=== PATIENT | female | born 1965 | race Caucasian/White ===

== ENCOUNTER 2020-01-22 17:48 | Emergency (ER) | payer SELFPAY ==
[2020-01-22 18:03] VITALS: BP 126/77; PULSE 92; RESP 17; TEMP 36.7; O2SAT 92; BMI 27.1
--- NOTE | 2020-01-22 18:15 | W.ED.GENADLT ---
HPI - General Adult General: Chief complaint: General Medical Stated complaint: sore throat, ear pain Time Seen by Provider: 01/22/20 18:04 Source: patient Mode of arrival: ambulatory Limitations: no limitations History of Present Illness: HPI narrative: Patient is a 54-year-old female who presents to ED today with a main complaint of right ear pain over the past 4 days. She has not had any injury or trauma to her ear. She denies any recent water activities. She denies drainage, tinnitus, or hearing loss. She also states she is having pain in her throat only with swallowing . She states she was able to eat ice cream and oatmeal today and is not having difficulty with secretions. No fevers. Associated symptoms: Deny chest pain, dyspnea, headache(s), malaise, nausea, rash, palpitations, syncope or vomiting Review of Systems General: Reports: 10 or more systems reviewed and unremarkable except in HPI and below Const: Denies: fever, chills, body aches, fatigue, malaise or night sweats Eyes: Denies: change in vision, blurry vision, photophobia, eye discomfort, eye discharge, floaters or seeing flashes ENMT: Reports: throat pain, painful swallowing and ear pain; Denies: enlarged tonsils, swelling of lips/tongue, oral sores/lesions, ear discharge, Change in hearing, tinnitus, nasal discharge, nasal congestion, nose bleeds, post nasal drip or facial/sinus pain Card: Denies: chest pain, palpitations, irregular heart rhythm, edema, lightheadedness, syncope or pre-syncope Resp: Denies: shortness of breath, productive cough or non-productive cough GI: Denies: abdominal pain, nausea, vomiting or diarrhea Musc: Denies: neck pain or back pain Skin/Breast: Denies: rash Neuro: Denies: headache, numbness in extremities, weakness in extremities, changes in sensation, dizziness or vertigo All/Imm: Denies: facial swelling or seasonal allergies PFSH ED PFSH: Social History Smoking and tobacco status: current every day smoker Physical Exam Const: COMMON NORMALS: no apparent distress, average body habitus, oriented x3, no limitations, healthy appearing, alert and well nourished HENMT: COMMON NORMALS: normocephalic, head/scalp atraumatic, hearing grossly normal bilaterally, external ears normal, external nose normal, nasal mucous membranes and turbinates normal and moist oral mucous membranes HEAD & SCALP: normal to inspection, normocephalic and atraumatic FACE & SINUS: normal facial exam and sinuses nontender NOSE: external nose normal and nasal mucous membranes and turbinates normal EXTERNAL EAR: Yes external ears normal EXTERNAL AUDITORY CANAL: EAC abnormal (fluid and bulging to R TM; no perf; no erythema ) TYMPANIC MEMBRANE: TM normal on the left MOUTH: lip normal and tongue normal THROAT: peritonsillar mass right, posterior oropharynx abnormal exudates and uvula laterally displaced to the left OTHER: no muffled voice Eye: COMMON NORMALS: PERRL, EOMs intact bilaterally and conjunctivae normal CONJUNCTIVA: Yes conjunctivae normal PUPIL: Yes PERRL Resp: COMMON NORMALS: normal respiratory effort and clear to auscultation bilaterally AUSCULTATION: clear to auscultation bilaterally Cardio: COMMON NORMALS: regular rate and regular rhythm RATE: regular rate RHYTHM: regular rhythm Neuro: COMMON NORMALS: oriented x3 SENSORIUM/ORIENTATION: Yes alert Skin: COMMON NORMALS: no rashes or lesions noted GENERAL SKIN EXAM: no rashes or lesions noted Course Consultations: Consultation #1: MONICA Cantrell at [facility]-will see patient for drainage at 9AM tomorrow Vital Signs: Vital signs: Vital Signs Temperature 98.1 F 01/22/20 18:03 Pulse Rate 84 01/22/20 19:23 Respiratory Rate 16 01/22/20 19:23 Blood Pressure 126/77 01/22/20 19:23 Pulse Oximetry 96 01/22/20 19:23 MDM - General Adult MDM Narrative: Medical decision making narrative: 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 Her CT scan confirms the presence of a 3.6 cm abscess. On patient's lab work she is noted to have a blood sugar of over 500. Patient states she is not a known diabetic. She was given fluids and insulin here and repeat glucose was 367. She will be placed on metformin and we will have case management get her a PCP appointment as soon as possible. I spoke to [facility] who will see her tomorrow morning for drainage. At this time patient has no muffled voice, she is able to control her own secretions, she is able to eat/drink. Patient was given IV Decadron here prior to glucose lab returning. I will place her on any prescription steroids at this time and leave that decision up to ENT. Strict return to ED precautions given for overnight. Lab Data: Labs: Lab Results 01/22/20 01/22/20 01/22/20 Range/Units 18:20 18:35 19:21 WBC 17.5 H (4.0-10.0) 10^3/ uL RBC 4.56 (4.1-5.3) 10^6/u L Hgb 13.7 (11.5-15.3) g/dL Hct 41.2 (37.0-47.0) % MCV 90.4 (81-99) fL MCH 30.0 (28.0-34.0) pg MCHC 33.3 (30.0-36.0) g/dL RDW 12.0 L (12.1-15.1) % Plt Count 262 (130-400) 10^3/c mm MPV 11.9 H (7.4-10.4) fL Neut % (Auto) 76.9 % Lymph % (Auto) 16.0 % [place] % (Auto) 5.4 % Eos % (Auto) 0.7 % Baso % (Auto) 0.5 % Neut # (Auto) 13.4 H (1.8-7.7) 10^3/u L Lymph # (Auto) 2.8 (0.8-4.8) 10^3/u L [place] # (Auto) 1.0 H (0.2-0.9) 10^3/u L Eos # (Auto) 0.1 (0.0-0.8) 10^3/u L Baso # (Auto) 0.1 (0.0-0.1) 10^3/u L Nucleated RBC % (a uto) 0 % Nucleated RBCs # 0.0 /100WBC Sodium 132 L (136-145) mmol/L Potassium 3.4 L (3.5-5.1) mmol/L Chloride 87 L (98-107) mmol/L Carbon Dioxide 30 H (22-29) mmol/L Anion Gap 18.4 (5-19) BUN 6 (6-20) mg/dL Creatinine 0.8 (0.5-0.9) mg/dL GFR Calculation 74.7 L (90-130) mL/min Glucose 513 H* (65-115) mg/dL Calculated Osmolal ity 293 (285-295) mOsm/k g Calcium 10.3 (8.5-10.5) mg/dL Total Bilirubin 0.5 (0.15-1.2) mg/dL AST 14 (0-32) U/L ALT 11 (0-33) U/L Alkaline Phosphata se 175 H (35-105) IU/L Total Protein 9.1 H (6.6-8.7) g/dL Albumin 4.0 (3.5-5.2) g/dL Globulin 5.1 H (1.3-4.6) g/dL Urine Opiates Scre en (Negative) ng/mL Ur Barbiturates Sc reen (Negative) ng/mL Ur Phencyclidine S crn (Negative) ng/mL Ur Amphetamines Sc reen (Negative) ng/mL U Benzodiazepines Scrn (Negative) ng/mL Urine Cocaine Scre en (Negative) ng/mL U Marijuana (THC) Screen (Negative) ng/mL Group A Strep Rapi d Negative (Negative) 01/22/20 Range/Units 19:30 WBC (4.0-10.0) 10^3/ uL RBC (4.1-5.3) 10^6/u L Hgb (11.5-15.3) g/dL Hct (37.0-47.0) % MCV (81-99) fL MCH (28.0-34.0) pg MCHC (30.0-36.0) g/dL RDW (12.1-15.1) % Plt Count (130-400) 10^3/c mm MPV (7.4-10.4) fL Neut % (Auto) % Lymph % (Auto) % [place] % (Auto) % Eos % (Auto) % Baso % (Auto) % Neut # (Auto) (1.8-7.7) 10^3/u L Lymph # (Auto) (0.8-4.8) 10^3/u L [place] # (Auto) (0.2-0.9) 10^3/u L Eos # (Auto) (0.0-0.8) 10^3/u L Baso # (Auto) (0.0-0.1) 10^3/u L Nucleated RBC % (a uto) % Nucleated RBCs # /100WBC Sodium (136-145) mmol/L Potassium (3.5-5.1) mmol/L Chloride (98-107) mmol/L Carbon Dioxide (22-29) mmol/L Anion Gap (5-19) BUN (6-20) mg/dL Creatinine (0.5-0.9) mg/dL GFR Calculation (90-130) mL/min Glucose (65-115) mg/dL Calculated Osmolal ity (285-295) mOsm/k g Calcium (8.5-10.5) mg/dL Total Bilirubin (0.15-1.2) mg/dL AST (0-32) U/L ALT (0-33) U/L Alkaline Phosphata se (35-105) IU/L Total Protein (6.6-8.7) g/dL Albumin (3.5-5.2) g/dL Globulin (1.3-4.6) g/dL Urine Opiates Scre en Negative (Negative) ng/mL Ur Barbiturates Sc reen Negative (Negative) ng/mL Ur Phencyclidine S crn Negative (Negative) ng/mL Ur Amphetamines Sc reen Positive H (Negative) ng/mL U Benzodiazepines Scrn Negative (Negative) ng/mL Urine Cocaine Scre en Negative (Negative) ng/mL U Marijuana (THC) Screen Positive H (Negative) ng/mL Group A Strep Rapi d (Negative) Imaging Data^: CT neck: Radiologist's impression: [place] [address] CT Scan Report Signed Patient: Aida Luong Unit #: [id number] : 1965 Age/Sex: 54 / F ADM Date: 01/22/20 Loc: ER Room/Bed: Attending Dr: Ordering Provider/Ordering MD: Abbey Carey Date of Service: 01/22/20 Procedure(s): CT neck w con* [id number] Accession Number(s): [id number] Report Number: [id number] PROCEDURE INFORMATION: Exam: CT Neck With Contrast Exam date and time: 01/22/2020 6:37 PM Age: 54 years old Clinical indication: Neck pain and other: Ear; Additional info: R sided area captain; Uvular displacement; R ear/mastoid pain TECHNIQUE: Imaging protocol: Computed tomography images of the neck with intravenous contrast. Radiation optimization: All CT scans at this facility use at least one of these dose optimization techniques: automated exposure control; mA and/or kV adjustment per patient size (includes targeted exams where dose is matched to clinical indication); or iterative reconstruction. Contrast material: OMNI 300; Contrast volume: 95 ml; Contrast route: IV; COMPARISON: No relevant prior studies available. RADIATION DOSE METRICS: Total DLP: 642.18 mGy-cm FINDINGS: Nasopharynx: Unremarkable. Oropharynx: 3.6 x 3 x 2.8 cm ovoid shaped hypodense mass with peripheral enhancement right oropharyngeal region worrisome for an abscess (or less likely necrotic tumor); series 3, axial image 35 through 47. Hypopharynx: See larynx below. Larynx: Associated mild edema/inflammation of uvula which is displaced to the left. Mild swelling/edema right supraglottic larynx region. Grossly nonenlarged epiglottis. Retropharyngeal space: Unremarkable. Submandibular/Parotid glands: Normal. Glands are normal in size. Thyroid: Normal. No enlarged or calcified nodules. Lymph nodes: Bilateral homogeneously enhancing lymph nodes submandibular and jugulodigastric regions the. These are presumably reactive in nature. The largest right jugulodigastric node measures 2.6 x 1.5 cm. Trachea: Visualized trachea is unremarkable. Lungs: Unremarkable as visualized. Dental: Bilateral dental caries and periodontal disease. Bones/joints: Unremarkable. No acute fracture. CT/CT neck w con* [id number] IMPRESSION: 1.) 3.6 cm right pharyngeal region mass with peripheral enhancement worrisome for an abscess. Necrotic tumor not absolutely excluded. 2.) Bilateral presumably reactive lymphadenopathy. 3.) Chronic dental disease. Radiation Dose CTDIVOL = (mGy): DLP = 642.18 (mGy-cm) Dictated By: Keith Alvarez MD Signed By: Keith Alvarez MD Signed Date/Time: 01/22/201934 DD/ 34 Discharge Plan Discharge Patient Disposition: Home, Self-Care Clinical Impression: Abscess, peritonsillar Uncontrolled diabetes mellitus Qualifiers: Diabetes mellitus type: type 2 Glycemic state: with hyperglycemia Qualified Code(s): E11.65 - Type 2 diabetes mellitus with hyperglycemia Condition: Stable Prescriptions: New clindamycin HCl 300 mg capsule 300 mg PO Q6H 10 Days Qty: 40 RF: 0 metformin 500 mg tablet 500 mg PO BID Qty: 60 RF: 0 Discharge Orders: Discharge Order (Routine); Ordered 01/22/20 Ordered By: Abbey Carey Referrals: Len Mann MD [Family Provider] - Discharge Diet: Soft Mechanical Discharge Activity: Increase activity as tolerated Patient Instructions: Peritonsillar Abscess (ED), Peritonsillar Abscess - Adult Activity Restrictions/Additional Instructions: As discussed [facility] is going to see you at 9 AM TOMORROW. It is imperative that you make this appointment. Address for their office is [address] [place] [address] [address] floor) [place], [place]. Their phone number is [phone]. I have given you a prescription for antibiotics-they may change this if needed. In addition please discuss with them the use of steroids as we found out today you are an undiagnosed diabetic with uncontrolled sugars. BRING THE DISC OF YOUR CT SCAN WITH YOU TO THE APPOINTMENT. 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
[2020-01-22 18:42] LABS: Basophils # 0.1 10^3/uL (0.0-0.1); Basophils % 0.5 %; Eosinophils # 0.1 10^3/uL (0.0-0.8); Eosinophils % 0.7 %; Hematocrit 41.2 % (37.0-47.0); Hemoglobin 13.7 g/dL (11.5-15.3); Lymphocytes # 2.8 10^3/uL (0.8-4.8); Mean Corpuscular HGB Conc 33.3 g/dL (30.0-36.0); Mean Corpuscular Volume 90.4 fL (81-99); Mean Platelet Volume 11.9 fL (7.4-10.4); Monocytes % 5.4 %; Neutrophils # 13.4 10^3/uL (1.8-7.7); Neutrophils % 76.9 %; Nucleated Red Blood Cells % 0 %; Platelet Count 262 10^3/cmm (130-400); Red Blood Count 4.56 10^6/uL (4.1-5.3); White Blood Count 17.5 10^3/uL (4.0-10.0)
[2020-01-22] MEDS: clindamycin 900 MG/50 ML PREMIX 100 MG IV (18:49)
[2020-01-22] MEDS: dexamethasone 10 mg/mL INJ 8 MG IV (18:49)
[2020-01-22] MEDS: iohexol 300 mg/mL 100 mL Btl IV (18:51)
[2020-01-22 19:08] LABS: Alanine Aminotransferase 11 U/L (0-33); Alkaline Phosphatase 175 IU/L (35-105); Anion Gap 18.4 (5-19); Aspartate Amino Transferase 14 U/L (0-32); Blood Urea Nitrogen 6 mg/dL (6-20); Calcium 10.3 mg/dL (8.5-10.5); Carbon Dioxide 30 mmol/L (22-29); Chloride 87 mmol/L (98-107); Globulin 5.1 g/dL (1.3-4.6); Glomerular Filtration Rate 74.7 mL/min (90-130); Osmolality Calculated 293 mOsm/kg (285-295); Potassium 3.4 mmol/L (3.5-5.1); Sodium 132 mmol/L (136-145); Total Bilirubin 0.5 mg/dL (0.15-1.2); Total Protein 9.1 g/dL (6.6-8.7)
--- NOTE | 2020-01-22 19:08 | PC.NURSE ---
report received from ARIS Almonte and care transferred to ARIS Blas
[2020-01-22 19:23] VITALS: BP 126/77; PULSE 84; RESP 16; O2SAT 96
[2020-01-22 19:26] LABS: Glucose 513 mg/dL (65-115)
--- NOTE | 2020-01-22 19:27 | PC.NURSE ---
received critical glucose of 513 from lab, notified ANA PAULA Balderrama
[2020-01-22] MEDS: sodium chloride 0.9% 1,000 ML 999 ML IV (20:01)
[2020-01-22 20:22] LABS: Amphetamines Screen Urine Positive (Negative); Barbiturates Screen Urine Negative (Negative); Benzodiazepines Screen Urine Negative (Negative); Cocaine Screen Urine Negative (Negative); Opiate Screen Urine Negative (Negative); PCP Screen Urine Negative (Negative); THC Screen Urine Positive (Negative)
[2020-01-22 20:24] LABS: Rapid Strep A Test Negative (Negative)
[2020-01-22] MEDS: insulin regular-human 100 units/1 mL 8 UNIT IVP (20:26)
[2020-01-22 21:24] VITALS: BP 122/74; PULSE 70; RESP 16; O2SAT 98
[2020-01-23 07:53] LABS: Glucose Point of Care 376 mg/dL (70-110)
--- NOTE | 2020-01-23 13:56 | DCPLANNER ---
manager marketing communication had message to speak with patient about getting established with a primary care physician. manager marketing communication called [phone], was told that no one by that name lived there. manager marketing communication said that this was [facility], and this was the number that the field case manager had for patient. Then field case manager was told that patient was in [place] seeing an ENT. manager marketing communication left name and phone number to be given to patient to call field case manager back about getting established with a primary care physician.
== END 2020-01-22 21:27 | disposition home or self-care (01) ==
PROVIDERS: Emergency Provider Physician Assistant; Family Provider General Practice
DX: J36 Peritonsillar abscess (principal); E11.65 Type 2 diabetes mellitus with hyperglycemia; F17.210 Nicotine dependence, cigarettes, uncomplicated
CPT/HCPCS: 12345; 36416; 70491; 80053; 80306; 82962; 85025; 87081; 87880; 96365; 96375; 99283; 99284; J1100; J1815; J3490; J7030; Q9967

== ENCOUNTER 2020-02-21 10:20 | Emergency (ER) | payer SELFPAY ==
[2020-02-21 10:31] VITALS: BMI 23.6
[2020-02-21 10:35] VITALS: BP 139/91; PULSE 93; RESP 18; TEMP 36.7; O2SAT 96
--- NOTE | 2020-02-21 10:47 | W.ED.EXTPRO ---
HPI - Extremity Problem General: Chief complaint: Extremity Problem,Nontraumatic Stated complaint: LEGS CRAMPING Time Seen by Provider: 02/21/20 10:44 History of Present Illness: HPI Narrative: 54-year-old female comes in complaining of severe back pain pain radiates down into her left buttock and down into her feet. She has had this for the last week without significant improvement she does find that lying down seems to help and she can position and pain to alleviate it some but it is not completely resolved. She has been trying various [id number] NSAIDs with no real relief. She denies any urinary retention or fecal incontinence there is no dysuria urgency or frequency no fever no recent illnesses. She is not had previous episodes that she cannot recall a significant precipitating event to that seem to set off this discomfort. MD Complaint: extremity pain Onset (ago): day(s) (7) Pain Consistency: constant Location: left and lower extremity Quality: burning and sharp Radiation: distal Relieving factors: immobilization and rest Exacerbating factors: weight bearing and walking Associated symptoms: Reports no associated symptoms; Deny chest pain, fever(s) or rash Review of Systems Const: Denies: fever(s), chills, body aches, change in appetite, fatigue or malaise ENMT: Denies: throat pain, ear or mastoid pain, nasal discharge or nasal congestion Card: Denies: chest pain, edema, dyspnea on exertion or orthopnea Resp: Denies: dyspnea, productive cough or non-productive cough GI: Denies: abdominal pain, nausea, vomiting, hematemesis, coffee ground emesis, diarrhea, constipation, bloating, hematochezia or melena : Denies: flank pain, difficulty voiding, dysuria, urinary frequency or urinary urgency Skin/Breast: Denies: rash or pruritus PFSH ED PFSH: Social History Smoking and tobacco status: current every day smoker Physical Exam Const: COMMON NORMALS: no acute distress GENERAL APPEARANCE: cooperative and comfortable ORIENTATION/CONSCIOUSNESS: Yes awake, Yes oriented to person, Yes oriented to place and Yes oriented to time HENMT: COMMON NORMALS: normocephalic, atraumatic, hearing grossly normal bilaterally, external ears normal, EAC's normal, TM's normal bilaterally, Normal nasal mucous membranes and turbinates present, moist oral mucous membranes and oropharynx normal HEAD & SCALP: normocephalic and atraumatic NOSE: Normal nasal mucous membranes and turbinates present EXTERNAL EAR: Yes external ears normal EXTERNAL AUDITORY CANAL: EAC's normal TYMPANIC MEMBRANE: TM's normal bilaterally Eye: COMMON NORMALS: Equal, round and reactive pupils present, EOMs intact bilaterally, conjunctivae normal and no scleral icterus CONJUNCTIVA: Yes conjunctivae normal PUPIL: Yes Equal, round and reactive pupils present Neck/C-Spine: COMMON NORMALS: full ROM, no lymphadenopathy, supple and no JVD Lymph: LYMPHATIC: no lymphadenopathy noted and no lymphedema noted Resp: COMMON NORMALS: normal respiratory effort, No retractions, No use of accessory muscles and clear to auscultation bilaterally AUSCULTATION: clear to auscultation bilaterally Cardio: COMMON NORMALS: no JVD, regular rate, regular rhythm and No murmurs present (Cardio) RATE: regular rate RHYTHM: regular rhythm GI: COMMON NORMALS: Soft to palpation and No hepatosplenomegaly present AUSCULTATION: Yes normoactive bowel sounds PALPATION: Yes Soft to palpation, No Tenderness to palpation present (GI), No Guarding due to palpation present (GI) and Yes No hepatosplenomegaly present Extremity: COMMON NORMALS: normal to inspection, capillary refill normal, no clubbing, cyanosis or edema, no calf tenderness and no pedal edema Neuro: SENSORIUM/ORIENTATION: Yes oriented to person, Yes oriented to place and Yes oriented to time DEEP TENDON REFLEXES: Right patellar reflex intensity grade: 1+ and Left patellar reflex intensity grade: 1+ OTHER: Dorsum plantar flex strength 5 of 5 with no weakness sensation of the lower extremity normal at this time no hyperesthesias or paresthesias Skin: COMMON NORMALS: no rashes or lesions noted GENERAL SKIN EXAM: no rashes or lesions noted Course Vital Signs: Vital signs: Vital Signs Temperature 98.0 F 02/21/20 10:35 Pulse Rate 63 02/21/20 13:00 Respiratory Rate 18 02/21/20 10:35 Blood Pressure 132/80 02/21/20 13:00 Pulse Oximetry 95 02/21/20 13:00 MDM - Extremity (Nontraumatic) MDM Narrative: Medical decision making narrative: Reviewed the CT findings with her there is a abnormality in the L4 neural arch that needs further evaluation. I think she also needs further evaluation little more concerned about her radicular symptoms. We will get her set up for MRI in an outpatient setting and then get her referred to neurosurgery. If she has worsening or change symptoms return discussed with her minimal activity she should not do any lifting greater than 10 pounds which is essentially gallon of milk and avoid prolonged walking or standing. Lab Data: Labs: Lab Results 02/21/20 02/21/20 02/21/20 Range/Units 10:57 10:57 12:26 WBC 10.3 H (4.0-10.0) 10^3/ uL RBC 4.98 (4.1-5.3) 10^6/u L Hgb 14.7 (11.5-15.3) g/dL Hct 45.2 (37.0-47.0) % MCV 90.8 (81-99) fL MCH 29.5 (28.0-34.0) pg MCHC 32.5 (30.0-36.0) g/dL RDW 12.6 (12.1-15.1) % Plt Count 249 (130-400) 10^3/c mm MPV 10.7 H (7.4-10.4) fL Neut % (Auto) 50.2 % Lymph % (Auto) 40.7 % [place] % (Auto) 6.0 % Eos % (Auto) 2.3 % Baso % (Auto) 0.5 % Neut # (Auto) 5.2 (1.8-7.7) 10^3/u L Lymph # (Auto) 4.2 (0.8-4.8) 10^3/u L [place] # (Auto) 0.6 (0.2-0.9) 10^3/u L Eos # (Auto) 0.2 (0.0-0.8) 10^3/u L Baso # (Auto) 0.1 (0.0-0.1) 10^3/u L Nucleated RBC % (a uto) 0 % Nucleated RBCs # 0.0 /100WBC Sodium 139 (136-145) mmol/L Potassium 4.1 (3.5-5.1) mmol/L Chloride 98 (98-107) mmol/L Carbon Dioxide 27 (22-29) mmol/L Anion Gap 18.1 (5-19) BUN 8 (6-20) mg/dL Creatinine 0.6 (0.5-0.9) mg/dL GFR Calculation 104.2 (90-130) mL/min Glucose 337 H (65-115) mg/dL Calculated Osmolal ity 297 H (285-295) mOsm/k g Calcium 9.6 (8.5-10.5) mg/dL Total Bilirubin 0.2 (0.15-1.2) mg/dL AST 25 (0-32) U/L ALT 26 (0-33) U/L Alkaline Phosphata se 123 H (35-105) IU/L Total Protein 7.5 (6.6-8.7) g/dL Albumin 4.0 (3.5-5.2) g/dL Globulin 3.5 (1.3-4.6) g/dL Urine Color Yellow (Yellow) Urine Appearance Clear (CLEAR) Urine pH 5.0 (5-7) Ur Specific Gravit y 1.015 (1.005-1.030) Urine Protein Neg (Negative) Urine Glucose (UA) 4+ H (Normal) Urine Ketones Negative (Negative) Urine Blood Neg (Negative) Urine Nitrate Negative (Negative) Urine Bilirubin Neg (NEGATIVE) Urine Urobilinogen Norm (Negative) mg/dL Ur Leukocyte Jenny ase Negative (Negative) Discharge Plan Discharge Patient Disposition: Home, Self-Care Clinical Impression: Acute left lumbar radiculopathy Condition: Stable Prescriptions: New hydrocodone-acetaminophen 5-325 mg tablet 1 tab PO Q6H PRN (Reason: pain) Qty: 25 RF: 0 Medrol (Cal) 4 mg tablets,dose pack See Rx Instructions .ROUTE .COMPLEX Qty: 21 RF: 0 No Action metformin 500 mg tablet 500 mg PO BID Qty: 60 RF: 0 Discharge Orders: Discharge Order (Routine); Ordered 02/21/20 Ordered By: Ramon Moreno Discharge Diet: Usual diet Discharge Activity: Limit activity as instructed Activity Restrictions/Additional Instructions: Case management will call for referral to neurosurgery as well as an MRI of your lumbar spine to further evaluate. Discharge Date/Time: 02/21/20 13:00 Coding Level of Care Code ED Application Spec for Chg Fwd Exam Comprehensive
--- NOTE | 2020-02-21 10:51 | USCV_ITS ---
Aida Luong Age: 54 Gender: F : 1965 Exam Date: 02/21/2020 11:16 Ordering Phys: Ramon Moreno DO Technologist: Ankita Katz [place]am [place] [facility] [place] Indication: swelling HISTORY: Lower extremity swelling. PROCEDURES: Venous duplex imaging was performed in only the left lower extremity. The following venous structures were evaluated: common femoral vein, profunda vein, proximal portion of the greater saphenous vein, superficial femoral vein, and the popliteal vein. In addition, the posterior tibial and peroneal trunk were evaluated. Serial compression, augmentation maneuvers, and spectral Doppler flow evaluation were performed. FINDINGS: The veins were found to be easily compressible with spontaneous blood flow. Non pulsatile flow pattern. CONCLUSIONS No evidence of DVT in the above-mentioned identifiable veins. Dr Jae Kothari MD [facility] (Electronically Signed) Final Date: 21 February 2020 19:14 S
--- NOTE | 2020-02-21 10:56 | CT_ITS ---
WS: [id number] CT lumbar spine wo con* [id number] REASON FOR EXAM: back pain wiht radiculopathy IV CONTRAST ADMINISTERED: None. TOTAL EXAM DLP: 5.[address] scans at [facility] use at least one of these dose optimization techniques: automat ed exposure control; mA and/or kV adjustment per patient size (includes targeted exams where dose is matched to clinical indication); or iterative reconstruction. FINDINGS: T12-L1: Normal vertebral alignment. Exiting foramina normal. No disc bulge or herniation. N o spinal stenosis. L1-L2: Normal vertebral alignment. Exiting foramina normal. No disc bulge or herniation. No spinal st enosis. L2-L3: Left-sided paracentral disc herniation into the foraminal area with mild foraminal stenosis on the left. No spinal stenosis. L3-L4: Normal vertebral alignment. Exiting foramina normal. No disc bulge or herniation. No spinal st enosis. L4-L5: Normal vertebral alignment. Exiting foramina normal. No disc bulge or herniation. No spinal st enosis. Along the neural arch on the left side is a cystic appearing lesion appears to be a bone cyst in the neural arch on the left. L5-S1 normal vertebral alignment. Exiting foramina normal. No disc bulge or herniation. No spinal odell nosis. 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 L2-L3 left-sided paracentral disc herniation into the foraminal area on the lef t. Note the lesion at L4 has not completely eroded through the neural arch on the left.
[2020-02-21 11:11] LABS: Basophils # 0.1 10^3/uL (0.0-0.1); Basophils % 0.5 %; Eosinophils # 0.2 10^3/uL (0.0-0.8); Eosinophils % 2.3 %; Hematocrit 45.2 % (37.0-47.0); Hemoglobin 14.7 g/dL (11.5-15.3); Lymphocytes # 4.2 10^3/uL (0.8-4.8); Lymphocytes % 40.7 %; Mean Corpuscular HGB Conc 32.5 g/dL (30.0-36.0); Mean Corpuscular Hemoglobin 29.5 pg (28.0-34.0); Mean Corpuscular Volume 90.8 fL (81-99); Mean Platelet Volume 10.7 fL (7.4-10.4); Monocytes # 0.6 10^3/uL (0.2-0.9); Neutrophils # 5.2 10^3/uL (1.8-7.7); Neutrophils % 50.2 %; Nucleated Red Blood Cells % 0 %; Platelet Count 249 10^3/cmm (130-400); Red Blood Count 4.98 10^6/uL (4.1-5.3); Red Cell Distribution Width 12.6 % (12.1-15.1); White Blood Count 10.3 10^3/uL (4.0-10.0)
[2020-02-21] MEDS: morphine 4 mg/mL SDV 1 mL IVP (11:22)
[2020-02-21] MEDS: ketorolac 30 mg/mL INJ 60 MG IVP (11:22)
[2020-02-21 11:30] LABS: Alanine Aminotransferase 26 U/L (0-33); Alkaline Phosphatase 123 IU/L (35-105); Anion Gap 18.1 (5-19); Aspartate Amino Transferase 25 U/L (0-32); Blood Urea Nitrogen 8 mg/dL (6-20); Calcium 9.6 mg/dL (8.5-10.5); Carbon Dioxide 27 mmol/L (22-29); Chloride 98 mmol/L (98-107); Creatinine Clr Calc Pharmacy 97.9039; Globulin 3.5 g/dL (1.3-4.6); Glomerular Filtration Rate 104.2 mL/min (90-130); Glucose 337 mg/dL (65-115); Osmolality Calculated 297 mOsm/kg (285-295); Potassium 4.1 mmol/L (3.5-5.1); Sodium 139 mmol/L (136-145); Total Bilirubin 0.2 mg/dL (0.15-1.2); Total Protein 7.5 g/dL (6.6-8.7)
[2020-02-21 11:33] LABS: Slide Review Slide Review Perform
[2020-02-21 12:44] LABS: Add Urine Microscopic? NO
[2020-02-21 12:52] LABS: Bilirubin Urine Neg (NEGATIVE); Blood Urine Neg (Negative); Glucose Urine UA 4+ (Normal); Ketones Urine Negative (Negative); Leukocyte Esterase Urine Negative (Negative); Nitrate Urine Negative (Negative); Protein Urine Neg (Negative); Specific Gravity, Urine 1.015 (1.005-1.030); Urine Appearance Clear (CLEAR); Urine Color Yellow (Yellow); Urobilinogen Urine Norm (Negative)
[2020-02-21 13:00] VITALS: BP 132/80; PULSE 63; O2SAT 95
--- NOTE | 2020-02-22 14:31 | DCPLANNER ---
health center manager had message to schedule an outpatient MRI for patient and a follow up appointment for patient with Dr. Hsieh. health center manager got ordered signed and faxed to centralized scheduling. health center manager will call for appointment information, after MRI is scheduled, rifle case repairer will call the office of Dr. Hsieh to schedule a follow up appointment with clinic. Patient does not have a phone number, will have to mail patient the appointment information.
--- NOTE | 2020-02-28 14:43 | DCPLANNER ---
Patient has an MRI scheduled for March 07, and a letter was sent to patient by centralized scheduling about appointment. traffic incident management manager called [facility], spoke with Shanika. Informed clinic that patient had an MRI scheduled for March 07 and would need a follow up appointment scheduled with Dr. Hsieh after that. traffic incident management manager also informed clinic that patient would need a letter sent due to not having a phone.
--- NOTE | 2020-02-29 08:45 | DCPLANNER ---
Uriel from [facility] called hospice case manager with appointment information. A follow up appointment is scheduled for Wednesday, March 11, 2020 at 8:00 with Kimberlee Causey. Clinic will mail patient a letter regarding scheduled appointment.
--- NOTE | 2020-03-15 14:24 | DCPLANNER ---
Patient had an appointment scheduled for 03.07.20 for an MRI - patient did attend the appointment. Patient had an appointment scheduled with Dr. Santos office - patient did attend appointment with Kimberlee on 03.11.20.
== END 2020-02-21 13:00 | disposition home or self-care (01) ==
PROVIDERS: Emergency Provider Family Medicine
DX: M54.16 Radiculopathy, lumbar region (principal); F17.210 Nicotine dependence, cigarettes, uncomplicated
CPT/HCPCS: 12345; 36415; 72131; 80053; 81003; 85025; 93971; 96374; 96375; 99282; 99283; J1885; J2270; J2930

== ENCOUNTER 2020-03-07 12:47 | Outpatient (CLI) | payer SELFPAY ==
--- NOTE | 2020-03-07 12:56 | MR_ITS ---
WS: [id number] MRI LUMBAR SPINE NONCONTRAST TECHNIQUE: Sagittal T1, T2 and STIR imaging. Axial T1 and T2 imaging. CLINICAL INFORMATION: ABNORMAL L4 LESION ON CT;LUMBAR RADICULOPATHY COMPARISON: CT February 21, 2020 FINDINGS: Mild lumbar curve. No acute compression. Mild annular bulging L4-5 with slight anterolisthesis. No hi gh-grade central canal stenosis. Small lytic lesion visualized in the recent CT measuring 5 mm appear s unchanged. This is somewhat difficult to visualize on this study due to slice thickness. Minimal if any T2 signal abnormality. This most likely represents degenerative cystic change adjacent to the le ft L4-5 facet. No evidence of edema or soft tissue lesion. L1-L2: Normal. L2-L3: Normal. L3-L4: Mild annular bulging with slight effacement of ventral thecal sac. Tiny left foraminal protrus ion with mild left and no significant right foraminal narrowing. Mild facet arthropathy. L4-L5: Slight anterolisthesis L4 on L5. Annular bulging in combination with facet arthropathy ligamen t flavum hypertrophy results in mild central canal stenosis. Slight impingement traversing L5 nerve r oots bilaterally. Mild to moderate left and mild right foraminal narrowing. Small facet effusions at this level. L5-S1: Mild annular bulging with slight effacement of ventral thecal sac. Mild facet arthropathy. Spi nal canal and foramen are patent. Normal bone marrow signal in the sacrum MR/MR lumbar spine wo con* [id number] IMPRESSION: 1. Small lytic lesion adjacent to the L4 facet on the recent CT appears well c ircumscribed with relatively normal bone marrow signal. This has a nonaggressiv e appearance and most likely represents small degenerative cyst. Similar-appear ing but smaller lesion in the adjacent L5 articulating facet. This can be follo wed up in [address] where it is better visualized. 2. Slight anterolisthesis L4 on L5. Disc bulging in combination with moderate facet arthropathy results in mild central canal stenosis and impingement tomás sing L5 nerve roots bilaterally. 3. Left foraminal protrusion L4-5 with mild to moderate left foraminal narrowi ng contacts the exiting left L4 nerve root. Recommend correlation for left L4 n erve root symptoms. 4. Mild right L4-5 foraminal narrowing. 5. Moderate facet arthropathy L4-L5 and L5-S1. Small amount of edema in the L4 -5 facets likely due to mild instability.
== END 2020-03-07 12:48 | disposition home or self-care (01) ==
LOC: RADSHAW 12:52
PROVIDERS: Visit Provider Family Medicine
DX: M54.16 Radiculopathy, lumbar region (principal); M51.26 Other intervertebral disc displacement, lumbar region; M47.817 Spondylosis without myelopathy or radiculopathy, lumbosacral region; R60.9 Edema, unspecified
CPT/HCPCS: 72148

== ENCOUNTER 2020-03-20 13:13 | Outpatient (CLI) | payer SELFPAY ==
--- NOTE | 2020-03-20 13:15 | CT_ITS ---
WS: [id number] CT LUMBAR SPINE, noncontrast. HISTORY: Bone cyst TECHNIQUE: Contiguous 2.5 mm axial imaging are performed. Sagittal and coronal reformats are submitte d and reviewed. All CT scans at [facility] use at least one of these dose optimization te chniques: automated exposure control; mA and/or kV adjustment per patient size (includes targeted exa ms where dose is matched to clinical indication); or iterative reconstruction. IV contrast: None DLP: 2023.31 mGycm COMPARISON: 02/21/2020 and 03/07/2020 All straightening of the normal lumbar lordosis. 2 mm anterolisthesis of L4. Very minimal disc space narrowing at L4-5. Pars are intact. Again noted is the lytic lesion involving the LEFT L4 lamina rd uring 6 mm which is unchanged. L1-2: Normal. L2-3: Normal. L3-4: Minimal annular disc bulging. No stenosis. L4-5: Diffuse annular disc bulging and facet joint arthritis. Mild ligamentum flavum disease. Mild en croachment upon the subarticular recesses. Moderate LEFT and mild RIGHT foraminal stenosis. L5-S1: Asymmetric disc bulging extends into the RIGHT foramen. No significant stenosis. Scattered calcifications within the aorta. CT/CT lumbar spine wo con* [id number] IMPRESSION: 1. Mild central and RIGHT foraminal stenosis at L4-5 with moderate LEFT forami nal stenosis. 2. Stable 6 mm lytic lesion in the LEFT L4 lamina. Probably benign. Nonaggress ryland in appearance. No interval change since 02/21/2020. 3. No fracture.
--- NOTE | 2020-03-20 13:30 | XR_ITS ---
WS: [id number] LATERAL LUMBAR SPINE: 3 view. Lateral radiographs are performed in upright neutral, flexion and extension to the patient's toleranc e. HISTORY: Low back pain COMPARISON: None available. L4 anterolisthesis by 3.8 mm. With flexion and extension no significant instability. Disc spaces and vertebral body heights are normal. Mild facet joint arthritis at L5-S1. XR/XR lumbar spine f/e only [id number] IMPRESSION: L4 anterolisthesis by 3.8 mm. No instability.
== END 2020-03-20 13:14 | disposition home or self-care (01) ==
LOC: RADWPI 13:16
PROVIDERS: Visit Provider Licensed Practical Nurse
DX: M54.5 Low back pain (principal); M48.061 Spinal stenosis, lumbar region without neurogenic claudication
CPT/HCPCS: 72120; 72131

== ENCOUNTER 2020-08-28 14:13 | Emergency (ER) | payer SELFPAY ==
[2020-08-28 14:34] VITALS: BP 117/79; PULSE 115; RESP 16; TEMP 36.2; O2SAT 95; BMI 25.7
--- NOTE | 2020-08-28 14:51 | W.ED.EXTPRO ---
HPI - Extremity Problem General: Chief complaint: Extremity Problem,Nontraumatic Stated complaint: L LEG PAIN Time Seen by Provider: 08/28/20 14:40 History of Present Illness: HPI Narrative: Patient complains about pain runs down her left buttock down the left leg which she has had before bent over to feed her rabbit the other day and and that aggravate her back she says. Complaint: extremity pain Onset (ago): year(s) Pain Consistency: intermittent Location: left Relieving factors: immobilization Associated symptoms: Deny chest pain, fever(s) or rash Review of Systems Const: Denies: fever(s), chills or body aches Eyes: Denies: change in vision or blurry vision ENMT: Denies: throat pain or nasal congestion Card: Denies: chest pain or dyspnea on exertion Resp: Denies: dyspnea, productive cough or non-productive cough GI: Denies: abdominal pain, nausea or vomiting Musc: Reports: back pain and extremity pain (Pain radiates down left buttock down leg.) Skin/Breast: Denies: rash Neuro: Denies: headache(s) Psych: Denies: anxiety or depression Hemant/Lymph: Denies: easy bruising PFSH ED PFSH: Medical History (Updated 03/11/20 @ 08:42 by Carol Causey APRN) 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 Lumbar stenosis with neurogenic claudication Spondylolisthesis of lumbar region Surgical History (Updated 03/11/20 @ 08:42 by Carol Causey APRN) History of tubal ligation (05/01/88) Family History Family/Other Diabetes Sister Thyroid disease Social History (Updated 08/28/20 @ 14:40 by Jaquan Perez RN) Smoking and tobacco status: current every day smoker Alcohol intake: never Substance/Drug Use: current Substance/Drug use frequency: few times a month Substance/Drug use type: Marijuana Household members: friend(s) Housing: House Marital status: / Current occupational status: unemployed History of recent travel: No Physical Exam Const: COMMON NORMALS: no acute distress, average body habitus and patient oriented x3 HENMT: COMMON NORMALS: normocephalic HEAD & SCALP: normal to inspection and normocephalic FACE & SINUS: normal facial exam Eye: COMMON NORMALS: conjunctivae normal GENERAL EYE: appearance normal, both eyes and all related structures CONJUNCTIVA: Yes conjunctivae normal Neck/C-Spine: COMMON NORMALS: no JVD Chest: COMMONS NORMALS: normal inspection of the chest Resp: COMMON NORMALS: normal respiratory effort and clear to auscultation bilaterally AUSCULTATION: clear to auscultation bilaterally Cardio: COMMON NORMALS: no JVD, regular rate and regular rhythm RATE: regular rate RHYTHM: regular rhythm GI: COMMON NORMALS: Normal to inspection, nondistended, normoactive bowel sounds present Back/Pelvis: LUMBAR SPINE/LOWER BACK: Yes ROM limited and Yes straight leg raise positive left Straight leg raise positive details left: at 30 degrees Extremity: COMMON NORMALS: normal to inspection Neuro: COMMON NORMALS: patient oriented x3 Course Vital Signs: Vital signs: Vital Signs Temperature 97.2 F L 08/28/20 14:34 Pulse Rate 115 H 08/28/20 14:34 Respiratory Rate 16 08/28/20 14:34 Blood Pressure 117/79 08/28/20 14:34 Pulse Oximetry 95 08/28/20 14:34 Discharge Plan Discharge Prescriptions: No Action Medrol (Cal) 4 mg tablets,dose pack See Rx Instructions .ROUTE .COMPLEX Qty: 21 RF: 0 ibuprofen 800 mg tablet 800 mg PO Q8H PRN (Reason: pain) Qty: 30 RF: 0 hydrocodone-acetaminophen 5-325 mg tablet 1 tab PO Q6H PRN (Reason: pain) Qty: 25 RF: 0 metformin 500 mg tablet 500 mg PO BID Qty: 60 RF: 0 Coding Level of Care Code ED Senior Hydrogeologist for Danyelleg Joby
[2020-08-28] MEDS: methylPREDNISolone (DEPO) 80 MG/ML INJ 1 mL IM (14:53)
[2020-08-28] MEDS: TRAMadol 50 mg Tablet 100 MG PO (14:54)
== END 2020-08-28 15:07 | disposition home or self-care (01) ==
PROVIDERS: Emergency Provider Nurse Practitioner Family
DX: M79.605 Pain in left leg (principal); F17.210 Nicotine dependence, cigarettes, uncomplicated
CPT/HCPCS: 12345; 96372; 99281; 99283; J1040

== ENCOUNTER 2021-08-23 13:28 | Emergency (ER) | payer SELFPAY ==
[2021-08-23 13:33] VITALS: BP 120/96; PULSE 100; RESP 19; TEMP 37.1; O2SAT 95; BMI 24.0
--- NOTE | 2021-08-23 13:43 | XRR_ITS ---
PROCEDURE INFORMATION: Exam: XR Left Hip Exam date and time: 08/23/2021 1:43 PM Age: 55 years old Clinical indication: Hip pain; Left hip; Additional info: L hip/leg/back pain TECHNIQUE: Imaging protocol: XR Left hip. Views: 2 or 3 views hip with pelvis when performed. COMPARISON: CR XR lumbar spine f/e only [id number] 03/20/2020 1:34 PM FINDINGS: Bones/joints: No fracture. No dislocation. No hip joint space narrowing. The symphysis pubis and sacroiliac joints are not diastatic. The sacral arcuate lines are intact. Soft tissues: Nonspecific coarse calcification in left pelvis. XR/XR hip LT 2-3V wo/w pel* [id number] IMPRESSION: No acute osseous abnormality. Radiation Dose CTDIVOL = (mGy): DLP = (mGy-cm)
--- NOTE | 2021-08-23 13:43 | XRR_ITS ---
PROCEDURE INFORMATION: Exam: XR Lumbosacral Spine Exam date and time: 08/23/2021 1:43 PM Age: 55 years old Clinical indication: Low back pain; Additional info: Low back/l leg pain TECHNIQUE: Imaging protocol: XR of the lumbosacral spine. Views: 2 or 3 views. COMPARISON: CR XR lumbar spine f/e only [id number] 03/20/2020 1:34 PM FINDINGS: Bones/joints: The lumbar vertebral bodies maintain height. Mild disc degeneration at L4-L5. Facet arthropathy at L4-L5 and L5-S1. There is a grade 1 degenerative spondylolisthesis at L4-L5. No fracture seen. Soft tissues: No acute soft tissue abnormality. XR/XR lumbar spine 2-3V* [id number] IMPRESSION: Multilevel degenerative changes. Radiation Dose CTDIVOL = (mGy): DLP = (mGy-cm)
--- NOTE | 2021-08-23 13:43 | W.ED.EXTPRO ---
HPI - Extremity Problem General: Chief complaint: Extremity Problem,Nontraumatic Stated complaint: L LEG PAIN Time Seen by Provider: 08/23/21 13:39 Source: patient Mode of arrival: EMS Limitations: no limitations History of Present Illness: HPI Narrative: 55-year-old incarcerated female presents to the ER today for left leg and hip pain that has been worsening over the last several days. Patient reports a history of low back issues and reports about 1 year ago she had an MRI and CT of her low back done. Patient reports she went to follow-up on that and the doctor had moved. Patient reports this pain has been ongoing but worse over the last several days. Patient reports she is unable to walk without pain that she rates a 7 out of 10. Patient reports movement and weightbearing definitely makes the pain worse but she always has pain and cramping in the anterior thigh of L leg and left hip. Patient reports numbness and tingling in the left leg that goes all the way to her foot at times. She denies any known injury at this time. Patient does not take anything for her pain currently. Patient denies any loss of bowel or bladder control. MD Complaint: extremity pain Onset (ago): month(s) Pain Consistency: constant Location: left and lower extremity Severity scale (1-10): 7 Quality: aching, sharp and other (cramping) Radiation: distal Exacerbating factors: range of motion, weight bearing and walking Associated symptoms: Deny chest pain, fever(s) or rash Review of Systems General: Reports: 10 or more systems reviewed and unremarkable except in HPI and below Const: Denies: fever(s), chills or body aches ENMT: Denies: throat pain, nasal discharge or nasal congestion Card: Denies: chest pain or palpitations Resp: Denies: dyspnea, productive cough or wheezing GI: Denies: abdominal pain, nausea, vomiting, diarrhea or constipation Musc: Reports: back pain (chronic low back issues), extremity pain (L leg/hip) and joint pain (left hip) Skin/Breast: Denies: rash or pruritus Neuro: Denies: headache(s) or dizziness [facility] ED PFSH: Medical History 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 Lumbar stenosis with neurogenic claudication Spondylolisthesis of lumbar region Surgical History (Updated 03/11/20 @ 08:42 by Carol Causey APRN) History of tubal ligation (05/01/88) Family History Family/Other Diabetes Sister Thyroid disease Social History (Updated 08/28/20 @ 14:40 by Jaquan Perez RN) Smoking and tobacco status: current every day smoker Alcohol intake: never Household members: friend(s) Housing: House Marital status: / Current occupational status: unemployed History of recent travel: No Physical Exam Const: COMMON NORMALS: average body habitus and patient oriented x3 GENERAL APPEARANCE: anxious, appears older than stated age and other (tearful, in handcuffs) NUTRITIONAL APPEARANCE: thin HENMT: COMMON NORMALS: normocephalic, external ears normal and Normal external nose present HEAD & SCALP: normocephalic NOSE: Normal external nose present EXTERNAL EAR: Yes external ears normal Eye: COMMON NORMALS: conjunctivae normal GENERAL EYE: appearance normal, both eyes and all related structures CONJUNCTIVA: Yes conjunctivae normal Resp: COMMON NORMALS: normal respiratory effort, No retractions and clear to auscultation bilaterally EFFORT & INSPECTION: Yes able to speak in complete sentences AUSCULTATION: clear to auscultation bilaterally, no rales, no rhonchi and no wheezes Cardio: COMMON NORMALS: regular rate, regular rhythm and No murmurs present (Cardio) RATE: regular rate RHYTHM: regular rhythm GI: COMMON NORMALS: Normal to inspection, nondistended, normoactive bowel sounds present, Soft to palpation and non-tender PALPATION: Yes Soft to palpation Back/Pelvis: LUMBAR SPINE/LOWER BACK: Yes pain with ROM, Yes paraspinal muscle tenderness (mild) Lumbar paraspinal muscle tenderness: bilateral and No paraspinal muscle spasm PELVIS: Yes buttocks normal SACROILIAC JOINTS: Yes SI joints normal Extremity: LEFT LOWER EXTREMITY: Yes hip joint Left hip: Yes inspection (normal), Yes palpation (non tender), Yes ROM (pain with straight leg raise/ROM) and Yes neurovascular exam (intact) Neuro: COMMON NORMALS: patient oriented x3, moves all extremities and no sensory deficits noted Psych: COMMON NORMALS: cooperative APPEARANCE: Yes unkempt SPEECH: Yes rapid MOOD & AFFECT: Yes anxious and Yes tearful Skin: HAIR: other (excessive facial hair noted) Course ED course: Patient presents EMS from the care home for left leg/hip/low back pain. Patient denies injury at this time however pain is continuing to worsen. We will get an x-ray of the low back and also the left hip/pelvis. Vital Signs: Vital signs: Vital Signs Temperature 98.7 F 08/23/21 13:33 Pulse Rate 77 08/23/21 14:11 Respiratory Rate 16 08/23/21 15:25 Blood Pressure 123/71 08/23/21 15:25 Pulse Oximetry 95 08/23/21 14:11 Critical Care Time Critical Care Time: Critical Care Time: No MDM - Extremity (Nontraumatic) MDM Narrative: Medical decision making narrative: 55-year-old female was incarcerated presents to the ER today for left hip and low back pain. Patient has a known history of chronic low back pain and takes anti-inflammatories occasionally for that. Patient reports worsening pain in the left hip and low back that sometimes radiates into her groin and down her left leg. Patient denies any loss of bowel or bladder control at this time. Pain is worse with weightbearing and movement. X-rays were done and indicate chronic degenerative changes of the low back, hip is normal. Likely this is an acute exacerbation of chronic low back pain. We will do a Medrol Dosepak and anti-inflammatory at this time. Conservative treatment recommended. Patient released back into custody of officer. Follow-up with PCP in 10 to 14 days if no improvement. Imaging Data^: Xray Ortho: Radiologist's impression: [address] [address] XRay Report Signed Patient: Aida Luong Unit #: [id number] : 1965 Age/Sex: 55 / F ADM Date: 08/23/21 Loc: ER Room/Bed: Attending Dr: Ordering Provider/Ordering MD: Daniella Montiel Date of Service: 08/23/21 Procedure(s): XR hip LT 2-3V wo/w pel* [id number] Accession Number(s): [id number] Report Number: [id number] PROCEDURE INFORMATION: Exam: XR Left Hip Exam date and time: 08/23/2021 1:43 PM Age: 55 years old Clinical indication: Hip pain; Left hip; Additional info: L hip/leg/back pain TECHNIQUE: Imaging protocol: XR Left hip. Views: 2 or 3 views hip with pelvis when performed. COMPARISON: CR XR lumbar spine f/e only [id number] 03/20/2020 1:34 PM FINDINGS: Bones/joints: No fracture. No dislocation. No hip joint space narrowing. The symphysis pubis and sacroiliac joints are not diastatic. The sacral arcuate lines are intact. Soft tissues: Nonspecific coarse calcification in left pelvis. XR/XR hip LT 2-3V wo/w pel* [id number] IMPRESSION: No acute osseous abnormality. Radiation Dose CTDIVOL = (mGy): DLP = (mGy-cm) Dictated By: Dipak Díaz Signed By: Dipak Díaz Signed Date/Time: 08/23/[id number] [address] XRay Report Signed Patient: Aida Luong Unit #: [id number] : 1965 Age/Sex: 55 / F ADM Date: 08/23/21 Loc: ER Room/Bed: Attending Dr: Ordering Provider/Ordering MD: Daniella Montiel Date of Service: 08/23/21 Procedure(s): XR lumbar spine 2-3V* [id number] Accession Number(s): [id number] Report Number: [id number] PROCEDURE INFORMATION: Exam: XR Lumbosacral Spine Exam date and time: 08/23/2021 1:43 PM Age: 55 years old Clinical indication: Low back pain; Additional info: Low back/l leg pain TECHNIQUE: Imaging protocol: XR of the lumbosacral spine. Views: 2 or 3 views. COMPARISON: CR XR lumbar spine f/e only [id number] 03/20/2020 1:34 PM FINDINGS: Bones/joints: The lumbar vertebral bodies maintain height. Mild disc degeneration at L4-L5. Facet arthropathy at L4-L5 and L5-S1. There is a grade 1 degenerative spondylolisthesis at L4-L5. No fracture seen. Soft tissues: No acute soft tissue abnormality. XR/XR lumbar spine 2-3V* [id number] IMPRESSION: Multilevel degenerative changes. Radiation Dose CTDIVOL = (mGy): DLP = (mGy-cm) Dictated By: Dipak Díaz Signed By: Dipak Díaz Signed Date/Time: 08/23/21 1432 Discharge Plan Discharge Patient Disposition: Home Clinical Impression: Intervertebral disc disorder with radiculopathy of lumbosacral region, Acute exacerbation of chronic low back pain Condition: Stable Prescriptions: New Medrol (Cal) 4 mg tablets,dose pack See Rx Instructions PO .COMPLEX Qty: 21 RF: 0 Mobic 15 mg tablet 15 mg PO DAILY Qty: 10 RF: 0 Discontinued prednisone 10 mg tablet 10 mg PO DAILY Qty: 14 RF: 0 No Action Medrol (Cal) 4 mg tablets,dose pack See Rx Instructions .ROUTE .COMPLEX Qty: 21 RF: 0 ibuprofen 800 mg tablet 800 mg PO Q8H PRN (Reason: pain) Qty: 30 RF: 0 hydrocodone-acetaminophen 5-325 mg tablet 1 tab PO Q6H PRN (Reason: pain) Qty: 25 RF: 0 tramadol 50 mg tablet 50 mg PO TID PRN (Reason: pain) Qty: 14 RF: 0 metformin 500 mg tablet 500 mg PO BID Qty: 60 RF: 0 Discharge Orders: Discharge ED (Routine); Ordered 08/23/21 Ordered By: Daniella Montiel Discharge Diet: Usual diet Discharge Activity: Resume usual activity Patient Instructions: Opioid Safety Activity Restrictions/Additional Instructions: Take Medrol Dosepak and Mobic as prescribed. Warm, moist heat recommended on the low back. Topical muscle rub such as IcyHot is okay to use but do not use with heat or ice. Follow-up with primary care doctor in 10 to 14 days if no improvement to discuss further imaging. Return to the ER with new or worsening symptoms. Coding Level of Care Code ED Bias Cutting Machine Operator for Kinza Fwd Exam Comprehensive
[2021-08-23 14:11] VITALS: BP 126/87; PULSE 77; RESP 18; O2SAT 95
[2021-08-23] MEDS: ketorolac 30 mg/mL INJ IM (15:17)
[2021-08-23 15:25] VITALS: BP 123/71; RESP 16
== END 2021-08-23 15:36 | disposition home or self-care (01) ==
PROVIDERS: Emergency Provider Physician Assistant
DX: M54.17 Radiculopathy, lumbosacral region (principal); G89.29 Other chronic pain; M54.50 Low back pain, unspecified; F17.210 Nicotine dependence, cigarettes, uncomplicated
CPT/HCPCS: 72100; 73502; 96372; 99283; J1885

== ENCOUNTER 2023-02-18 10:25 | Outpatient (CLI) | payer OTHER, SELFPAY ==
--- NOTE | 2023-02-18 10:44 | XR_ITS ---
WS: [id number] Exam: XR lumbar spine 2-3V* [id number] Date/Time of Exam: 02/18/2023 10:57 AM Reason For Exam: ENCOUNTER FOR DISABILITY DETERMINATIONS Comparison 08/23/2021. No acute fracture or dislocation. 5 mm degenerative anterolisthesis of L4 on L5 stable since previous study. Degenerative thinning of the L3-4 and L4-5 discs. Posterior elements are otherwise intact. Fa cet DJD at L4-5 and L5-S1. XR/XR lumbar spine 2-3V* [id number] IMPRESSION: 1. No fracture or malalignment. 2. Mild degenerative anterolisthesis of L4 on L5. Additional degenerative vines es as detailed above.
== END 2023-02-18 10:26 | disposition home or self-care (01) ==
PROVIDERS: PCP Dermatology Procedural Dermatology; Visit Provider Dermatology Procedural Dermatology
DX: Z02.71 Encounter for disability determination (principal); M47.817 Spondylosis without myelopathy or radiculopathy, lumbosacral region
CPT/HCPCS: 72100

== ENCOUNTER 2023-06-23 19:57 | Inpatient (IN) | payer MEDICAID, SELFPAY ==
[2023-06-23] VITALS (7 sets, daily range): BP systolic 125–131; BP diastolic 58–87; PULSE 68–103; RESP 15–20; TEMP 36.7; O2SAT 93–98; BMI 22.8
--- NOTE | 2023-06-23 20:19 | XRR_ITS ---
PROCEDURE INFORMATION: Exam: XR Left Toe(s) Exam date and time: 06/23/2023 8:32 PM Age: 57 years old Clinical indication: Other: Spider bite; Additional info: Wound, plantar aspect of the great toe TECHNIQUE: Imaging protocol: Radiologic exam of the left toes. Views: Minimum 2 views. COMPARISON: No relevant prior studies available. FINDINGS: Bones/joints: No evidence of acute fracture or dislocation. No erosive disease. No significant degenerative change. Soft tissues: Diffuse soft tissue swelling of the 1st toe. There is a focus of soft tissue gas along the plantar aspect of the 1st toe at the level of the interphalangeal joint measuring 7 mm in diameter. No radiopaque foreign body. XR/XR toe LT min 2V [id number] IMPRESSION: 1. No bony destructive change. 2. Soft tissue gas noted in the plantar aspect of the 1st toe without radiopaque foreign body.
--- NOTE | 2023-06-23 20:19 | XRR_ITS ---
PROCEDURE INFORMATION: Exam: XR Right Foot Exam date and time: 06/23/2023 8:30 PM Age: 57 years old Clinical indication: Other: Spider bite; Additional info: Wound, large, ulcerated wound to plantar aspect proximal to the TECHNIQUE: Imaging protocol: Radiologic exam of the right foot. Views: 3 or more views. COMPARISON: No relevant prior studies available. FINDINGS: Bones/joints: No evidence of acute fracture or dislocation. No erosive disease. No significant degenerative change. Soft tissues: There is an 8 mm focus of soft tissue gas along the plantar aspect of the foot at the level of the 2nd metatarsophalangeal joint. No radiopaque foreign body. XR/XR foot RT min 3V* [id number] IMPRESSION: No bony destructive change is evident. Abnormal soft tissue gas is situated along the plantar aspect of the 2nd metatarsophalangeal joint. No radiopaque foreign body.
--- NOTE | 2023-06-23 20:22 | ED_ITS ---
HPI - Extremity Problem General: Chief complaint: Extremity Problem,Nontraumatic Stated complaint: Left Foot hole and Right foot Hole Time Seen by Provider: 06/23/23 20:11 Source: patient Mode of arrival: wheelchair Limitations: no limitations History of Present Illness: Patient presents to the emergency department today accompanied by significant other for evaluation treatment of bilateral plantar foot wounds. Patient states that back in March she thought she had gotten some spider bites on the bottom of her feet. She states that since that time she has been doing bandaging and using triple antibiotic ointment and Medihoney. She states that she thought they were doing much better but, when she ran out of medications, the wounds became worse. She states tonight that during her bandage change a large black chunk of material came out of the bottom of her right foot associated with a significant odor and decided to be seen and evaluated. She states the last few days the right foot and her toes have become swollen and red. She denies fever. She denies any recent illness with upper respiratory complaints or GI complaints. She indicated she was told she was diabetic several years ago and was put on metformin but dealt with hypoglycemia and states her doctor took her off. However, the doctor closed down the [facility] clinic that she was being seen at and has not had any further follow-up since that time. Patient has a large, deep ulceration to the plantar aspect of her right foot proximal to the first and second M TP joints. There appears to be black tissue within the wound. There is surrounding erythema on the plantar aspect and her toes are swollen with noticeable erythema on the first, second, and third toes. General edema to the foot noticed. Patient has a much smaller wound to the medial toe pad of the first toe on the left foot with out significant discolor ation or draining noted. Review of Systems General: Reports: 10 or more systems reviewed and unremarkable except in HPI and below PFSH ED PFSH: Medical History 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 Lumbar stenosis with neurogenic claudication Spondylolisthesis of lumbar region Surgical History History of tubal ligation (05/01/88) Family History Family/Other Diabetes Sister Thyroid disease Social History Smoking and tobacco status: current every day smoker Alcohol intake: never Substance/Drug Use: current Substance/Drug use frequency: few times a month Household members: friend(s) Housing: House Marital status: / Current occupational status: unemployed Physical Exam Const: COMMON NORMALS: patient oriented x3 and alert OTHER: Patient is agitated-she is constantly moving and rolling around in the bed. Suspect it is consistent with substance use. HENMT: COMMON NORMALS: normocephalic, atraumatic and hearing grossly normal bilaterally HEAD & SCALP: normocephalic and atraumatic Eye: COMMON NORMALS: Equal, round and reactive pupils present, EOMs intact bilaterally and conjunctivae normal CONJUNCTIVA: Yes conjunctivae normal PUPIL: Yes Equal, round and reactive pupils present Neck/C-Spine: COMMON NORMALS: full ROM and no JVD Lymph: LYMPHATIC: no lymphadenopathy noted Resp: COMMON NORMALS: normal respiratory effort, No retractions and No use of accessory muscles Cardio: COMMON NORMALS: no JVD and regular rate RATE: regular rate Back/Pelvis: COMMON NORMALS: no thoracic nor lumbar tenderness and thoraco- lumbar ROM normal Extremity: NARRATIVE EXTREMITY EXAM: Patient still has preserved range of motion in her toes, feet, and ankles. Neuro: COMMON NORMALS: patient oriented x3 SENSORIUM/ORIENTATION: Yes alert OTHER: Patient reports intact sensation without deficit during examination to her toes and feet. Psych: COMMON NORMALS: mental status grossly normal, Normal thought process pr esent, cooperative and normal affect THOUGHT PROCESS: Normal thought process present Skin: NARRATIVE SKIN EXAM: Patient has generalized edema to the right foot and toes with erythema noted in the first, second, and third toes. Patient also has erythema on the distal plantar aspect of the right foot. Patient has an extremely deep, open ulceration approximately 1 cm in diameter and 1 cm deep containing a black tissue within the ulcer. No signs of bleeding or active draining. Patient has a much smaller ulcer only approximately 0.75 cm in diameter but only a couple of millimeters deep noted to the medial toe pad of the left great toe. No obvious erythema, draining, bleeding, or swelling to the left foot or toes. Course Vital Signs: Vital signs: Vital Signs Pulse Rate 95 06/23/23 22:15 Respiratory Rate 18 06/23/23 22:15 Blood Pressure 131/87 06/23/23 22:15 Pulse Oximetry 95 06/23/23 22:15 Oxygen Delivery Me thod Room Air 06/23/23 22:15 MDM - Extremity (Nontraumatic) Medical Decision Making Lab work shows no signs of an elevated white blood cell count but does have elevated inflammatory markers. X-ray shows no signs of concern for osteo but th ere is soft tissue gas present in both plantar aspects of the feet at the site of the ulcerations. I reached out and spoke with Dr. Epps who recommended CT scan and starting Vanco and Zosyn. He requests hospital admission and podiatry consult. I was able to speak with Dr. Cobb regarding patient's condition and he graciously agreed to admission. Patient was notified of the findings of her CT scan and also recommendation for admission for continued antibiotic therapies. She was willing and in agreement to the admission. Admission orders provided by Dr. Kapadia. We will defer care for further evaluation and intervention of this patient to the hospitalist services at this time. Differential Diagnosis Likely cellulitis and lower extremity edema; Unlikely herpes zoster, gout or deep vein thrombosis of lower extremity Lab Data 06/23/23 20:06/23/23: Radiology Impressions Foot X-Ray 06/23/23:19 IMPRESSION: No bony destructive change is evident. Abnormal soft tissue gas is situated along the plantar aspect of the 2nd metatarsophalangeal joint. No radiopaque foreign body. Toe X-Ray 06/23/23 20:19 IMPRESSION: 1. No bony destructive change. 2. Soft tissue gas noted in the plantar aspect of the 1st toe without radiopaque foreign body. Laboratory Results WBC 10.52 10^3/uL (3.29-11.43) 06/23/23 20: RBC 4.78 10^6/uL (3.85-5.65) 06/23/23 20: Hgb 14.30 g/dL (11.27-16.99) 06/23/23: Hct 41.8 % (36-47) 06/23/23: MCV 87.4 fl (85-98) 06/23/23 20: MCH 29.9 pg (27-33) 06/23/23: MCHC 34.2 g/dL (30-55) 06/23/23: RDW 12.2 % (12.1-15.1) 06/23/23 20: Plt Count 307 10^3/cmm (157-399) 06/23/23: MPV 10.7 fL (7.4-10.4) H 06/23/23 20: Neut % (Auto) 47.9 % 06/23/23: Lymph % (Auto) 41.4 % 06/23/23: [place] % (Auto) 6.5 % 06/23/23: Eos % (Auto) 3.3 % 06/23/23: Baso % (Auto) 0.7 % 06/23/23: Neut # (Auto) 5.04 10^3/uL (1.8-7.7) 06/23/23: Lymph # (Auto) 4.4 10^3/uL (0.8-4.8) 06/23/23: [place] # (Auto) 0.7 10^3/uL (0.2-0.9) 06/23/23: Eos # (Auto) 0.4 10^3/uL (0.0-0.8) 06/23/23: Baso # (Auto) 0.1 10^3/uL (0.0-0.1) 06/23/23: Nucleated RBC % (auto) 0 % 06/23/23: Nucleated RBCs # 0.0 /100WBC 06/23/23: ESR 33 mm/hr (0-15) H 06/23/23 20: Sodium 138 mmol/L (136-145) 06/23/23: Potassium 3.5 mmol/L (3.5-5.1) 06/23/23 20: Chloride 95 mmol/L (98-107) L 06/23/23: Carbon Dioxide 32 mmol/L (22-29) H 06/23/23: Anion Gap 14.5 (5-19) 06/23/23 20: BUN 8 mg/dL (6-20) 06/23/23 20: Creatinine 0.7 mg/dL (0.5-0.9) 06/23/23 20: GFR Calculation 86.2 mL/min (90-130) L 06/23/23 20: Glucose 289 mg/dL (65-115) H 06/23/23 20: Calculated Osmolality 295 mOsm/kg (285-295) 06/23/23 20: Lactic Acid 2.2 mmol/L (0.5-2.2) 06/23/23 20: Calcium 9.0 mg/dL (8.5-10.5) 06/23/23: Total Bilirubin 0.3 mg/dL (0.15-1.2) 06/23/23: AST 12 U/L (0-32) 06/23/23: ALT 7 U/L (0-33) 06/23/23: Alkaline Phosphatase 131 U/L (35-105) H 06/23/23: C-Reactive Protein 30.1 mg/L (0.0-4.9) H 06/23/23 20: Total Protein 7.9 g/dL (6.6-8.7) 06/23/23: Albumin 3.9 g/dL (3.5-5.2) 06/23/23: Globulin 4.0 g/dL (1.3-4.6) 06/23/23 20: Procalcitonin 0.03 ng/mL (0-0.5) 06/23/23 20: Urine Color Yellow (Yellow) 06/23/23 22:06 Urine Appearance Sl hazy (CLEAR) A 06/23/23 22:06 Urine pH 5 (5-7) 06/23/23 22:06 Ur Specific [place] 1.030 (1.005-1.030) 06/23/23 22:06 Urine Protein Neg (Negative) 06/23/23 22:06 Urine Glucose (UA) 4+ (Normal) H 06/23/23 22:06 Urine Ketones 1+ (Negative) H 06/23/23 22:06 Urine Blood Neg (Negative) 06/23/23 22:06 Urine Nitrate Negative (Negative) 06/23/23 22:06 Urine Bilirubin 1+ (Negative) H 06/23/23 22:06 Urine Urobilinogen 1 mg/dL (Negative) H 06/23/23 22:06 Ur Leukocyte Esterase 1+ (Negative) H 06/23/23 22:06 Urine RBC 0-4 /hpf (0-2) H 06/23/23 22:06 Urine WBC 15-25 /hpf (0-5) H 06/23/23 22:06 Ur Squamous Epith Cells 15-25 /hpf (0-5) H 06/23/23 22:06 Amorphous Sediment Not Reportable 06/23/23 22:06 Urine Bacteria Trace /hpf (NONE) 06/23/23 22:06 Urine Mucus 2+ /hpf 06/23/23 22:06 Urine Opiates Screen Negative ng/mL (Negative) 06/23/23 22:06 Ur Barbiturates Screen Negative ng/mL (Negative) 06/23/23 22:06 Ur Phencyclidine Scrn Negative ng/mL (Negative) 06/23/23 22:06 Ur Amphetamines Screen Positive ng/mL (Negative) H 06/23/23 22:06 U Benzodiazepines Scrn Negative ng/mL (Negative) 06/23/23 22:06 Urine Cocaine Screen Negative ng/mL (Negative) 06/23/23 22:06 U Marijuana (THC) Screen Positive ng/mL (Negative) H 06/23/23 22:06 Ethyl Alcohol < 10 mg/dL (0-10) 06/23/23 20:27 All radiology interpretation(s) finalized by discharge Discharge Plan Discharge Patient Disposition: Admitted As Inpatient Clinical Impression: Elevated blood sugar level, Foot ulcer, left, Right foot ulcer Condition: Stable Coding Level of Care Code ED Planner Scheduler for Kinza Hemphill
[2023-06-23] MEDS: ketorolac 30 mg/mL INJ IVP (20:29)
[2023-06-23 20:37] LABS: Basophils # 0.1 10^3/uL (0.0-0.1); Basophils % 0.7 %; Eosinophils # 0.4 10^3/uL (0.0-0.8); Eosinophils % 3.3 %; Hematocrit 41.8 % (36-47); Lymphocytes # 4.4 10^3/uL (0.8-4.8); Lymphocytes % 41.4 %; Mean Corpuscular HGB Conc 34.2 g/dL (30-55); Mean Corpuscular Hemoglobin 29.9 pg (27-33); Mean Corpuscular Volume 87.4 fl (85-98); Mean Platelet Volume 10.7 fL (7.4-10.4); Monocytes # 0.7 10^3/uL (0.2-0.9); Monocytes % 6.5 %; Neutrophils # 5.04 10^3/uL (1.8-7.7); Neutrophils % 47.9 %; Nucleated Red Blood Cells % 0 %; Platelet Count 307 10^3/cmm (157-399); Red Blood Count 4.78 10^6/uL (3.85-5.65); Red Cell Distribution Width 12.2 % (12.1-15.1); White Blood Count 10.52 10^3/uL (3.29-11.43)
[2023-06-23 20:41] LABS: Erythrocyte Sedimentation Rate 33 mm/hr (0-15)
[2023-06-23 20:58] LABS: Alanine Aminotransferase 7 U/L (0-33); Albumin Level 3.9 g/dL (3.5-5.2); Alcohol Level < 10 mg/dL (0-10); Alkaline Phosphatase 131 U/L (35-105); Anion Gap 14.5 (5-19); Aspartate Amino Transferase 12 U/L (0-32); Blood Urea Nitrogen 8 mg/dL (6-20); C Reactive Protein 30.1 mg/L (0.0-4.9); Carbon Dioxide 32 mmol/L (22-29); Chloride 95 mmol/L (98-107); Glomerular Filtration Rate 86.2 mL/min (90-130); Glucose 289 mg/dL (65-115); Osmolality Calculated 295 mOsm/kg (285-295); Potassium 3.5 mmol/L (3.5-5.1); Sodium 138 mmol/L (136-145); Total Bilirubin 0.3 mg/dL (0.15-1.2); Total Protein 7.9 g/dL (6.6-8.7)
[2023-06-23 20:59] LABS: Lactic Sepsis W/Reflex 2.2 mmol/L (0.5-2.2)
[2023-06-23 21:05] LABS: Procalcitonin 0.03 ng/mL (0-0.5)
--- NOTE | 2023-06-23 21:52 | CTR_ITS ---
PROCEDURE INFORMATION: Exam: CT Left Lower Extremity Without Contrast, Foot Exam date and time: 06/23/2023 10:08 PM Age: 57 years old Clinical indication: Condition or disease; Patient HX: Patient was bite by a brown recluse, wound to plantar surface of big toe; Additional info: Wound, ulcerated wound with gas on XR at great toe TECHNIQUE: Imaging protocol: CT of the left lower extremity without contrast was performed. Exam focused on the foot. Radiation optimization: All CT scans at this facility use at least one of these dose optimization techniques: automated exposure control; mA and/or kV adjustment per patient size (includes targeted exams where dose is matched to clinical indication); or iterative reconstruction. REPORTING DATA: Count of CT and Cardiac NM exams in prior 12 months: This patient has received 0 known CTs and 0 known cardiac nuclear medicine studies in the 12 months prior to the current study. COMPARISON: CR (LOW EXM, ) 06/23/2023 8:32 PM RADIATION DOSE METRICS: Total DLP (mGy-cm): 160.09 FINDINGS: Bones/joints: No bony destructive change. No significant arthropathy. Soft tissues: Along the plantar aspect of the 1st toe, there is a focal gas containing ulcer crater measuring 8 mm in diameter. No additional soft tissue gas. No radiopaque foreign body. CT/CT foot LT wo con* [id number] IMPRESSION: Focal ulcer crater noted in the plantar aspect of the 1st toe. No radiopaque foreign body or additional soft tissue gas. No bony destructive change.
--- NOTE | 2023-06-23 21:52 | CTR_ITS ---
PROCEDURE INFORMATION: Exam: CT Right Lower Extremity Without Contrast, Foot Exam date and time: 06/23/2023 10:05 PM Age: 57 years old Clinical indication: Condition or disease; Other: Wounnd; Patient HX: PT states she was bit by a brown recluse, wound plantar surface about one inch below 2nd toe; Additional info: Wound, gas in soft tissue in ulcerated wound plantar 2nd mtp region TECHNIQUE: Imaging protocol: CT of the right lower extremity without contrast was performed. Exam focused on the foot. Radiation optimization: All CT scans at this facility use at least one of these dose optimization techniques: automated exposure control; mA and/or kV adjustment per patient size (includes targeted exams where dose is matched to clinical indication); or iterative reconstruction. REPORTING DATA: Count of CT and Cardiac NM exams in prior 12 months: This patient has received 0 known CTs and 0 known cardiac nuclear medicine studies in the 12 months prior to the current study. COMPARISON: CR (LOW EXM, ) 06/23/2023 8:30 PM RADIATION DOSE METRICS: Total DLP (mGy-cm): 146.59 FINDINGS: Bones/joints: There is no acute fracture, subluxation, dislocation, bone erosion or periosteal reaction. Soft tissues: There is a 1 cm x 0.9 cm x 1 cm subcutaneous soft tissue wound along the plantar side of the right foot, located below the distal end of the right 2nd metatarsal bone. Inflammation and soft tissue swelling is seen surrounding the wound involving the soft tissues measuring approximately 3 cm in diameter. Other findings: No foreign bodies are seen. CT/CT foot RT wo con* [id number] IMPRESSION: 1. A 1 cm x 0.9 cm x 1 cm subcutaneous soft tissue wound along the plantar side of the right foot, located below the distal end of the right 2nd metatarsal bone. Inflammation and soft tissue swelling is seen surrounding the wound involving the soft tissues measuring approximately 3 cm in diameter. No drainable fluid collection. 2. No acute fracture and no radiographic evidence of osteomyelitis.
[2023-06-23 22:19] LABS: Amphetamines Screen Urine Positive (Negative); Barbiturates Screen Urine Negative (Negative); Benzodiazepines Screen Urine Negative (Negative); Cocaine Screen Urine Negative (Negative); Opiate Screen Urine Negative (Negative); PCP Screen Urine Negative (Negative); THC Screen Urine Positive (Negative)
[2023-06-23 22:21] LABS: Urine Color Yellow (Yellow)
[2023-06-23 22:21] LABS: Reflex Lactate Order REFLEX LACTIC ORDERD
[2023-06-23 22:22] LABS: Bilirubin Urine 1+ (Negative); Blood Urine Neg (Negative); Glucose Urine UA 4+ (Normal); Ketones Urine 1+ (Negative); Leukocyte Esterase Urine 1+ (Negative); Nitrate Urine Negative (Negative); Protein Urine Neg (Negative); Urine Appearance SL Hazy (CLEAR); Urobilinogen Urine 1 mg/dL (Negative); pH Urine 5 (5-7)
[2023-06-23 22:23] LABS: Add Urine Culture? No; Add Urine Microscopic? YES; Bacteria Urine TRACE /hpf; Mucus Urine 2+ /hpf; RBC Urine 0-4 /hpf (0-2); Squamous Epithelial Cell Urine 15-25 /hpf (0-5); WBC Urine 15-25 /hpf (0-5)
--- NOTE | 2023-06-23 22:42 | PC.PHAR ---
Pharmacokinetic dosing service Date: 06/23/23 Time: 2242 Objective: Patient: Aida Luong Floor: ED-10 Age: 57 yo Serum creatinine: 0.7 mg/dL Height: 64.0 Inches Weight (kg): 60.328 Diagnosis: Relevant medical/social history: Cultures and sensitivities: Other labs: Assessment: IBW (kg): 54.70 Dosing wt(kg): 60.328 Estimated Creatinine clearance (ml/min): 76.6 CRCL method: Cockcroft and Gault using ibw(default). Drug selected: Vancomycin Loading dose (mg): 0 Vd (liters): 54.3 (factor used: 0.9 L/kg) Rigo (hr-1): 0.068 Half life (hrs): 10.19 Recommended dose: 1000 mg Interval: 12 hrs Infusion time (hrs): 1.5 Predicted peak (mcg/mL): 31.4 Predicted trough (mcg/mL): 15.38 Total body weight is being used for vancomycin dosing. Renal function is stable [ ] /unstable [ ] Recommendations: Give Vancomycin 1000 mg q 12 hrs with an expected Cpeak of 31.4 mcg/ml and an expected Ctrough of 15.38 mcg/ml Renal dosing of other antibiotics (review renal dosing of other medications and list guidelines here): Thank you for the consult, will continue to follow. Signature: Mari Morel [facility]
[2023-06-23] MEDS: morphine 4 mg/mL SDV 1 mL 2 MG IVP (22:49)
[2023-06-23] MEDS: vancomycin 1,000 MG in sodium chloride 0.9% 250 ML 250 MG IV (22:50)
--- NOTE | 2023-06-23 23:18 | PM.HP ---
Providers/Chief Complaint Admitting Physician: Everette Cobb MD Primary Care Provider: Melvin Xiong DO Chief Complaint: Hole in Both Feet\Stinks History of Present Illness Aida Luong is a 57 year old female 57-year-old female with a past medical history of type 2 diabetes mellitus, current smoker, who presents to [facility] due to diabetic ulcers on bilateral foot, she tells me that the one under her right foot has significantly bothered her for the last few days, she tells me that in March she thinks she had a spider bite on both of her feet, that caused these ulcers, does report chills, no fevers, no calf pain, no calf swelling. Does report drainage from right foot ulcer,, foul-smelling, she does have peripheral neuropathy Review of Systems Const: Reports: chills; Denies: fever(s) Eyes: Denies: change in vision ENMT: Denies: throat pain Card: Denies: chest pain Resp: Denies: dyspnea GI: Denies: abdominal pain : Denies: flank pain Musc: Denies: neck pain Neuro: Denies: headache(s) Medications/Allergies Home Medications Medication Instructions Recorded Confirmed Last Taken Type metformin 500 mg tablet 500 mg PO BID #60 tabs 01/22/20 03/11/20 02/20/20 Rx hydrocodone 5 mg-acetaminophen 325 1 tab PO Q6H PRN pain #25 tabs 02/21/20 03/11/20 Unknown Rx mg tablet tramadol 50 mg tablet 50 mg PO TID PRN pain #14 tabs 08/28/20 Unknown Rx meloxicam 15 mg tablet (Mobic) 15 mg PO DAILY #10 tabs 08/23/21 Unknown Rx methylprednisolone 4 mg tablets in See Rx Instructions PO .COMPLEX 08/23/21 Unknown Rx a dose pack (Medrol (Cal)) #21 ea Allergies Allergy/AdvReac Type Severity Reaction Status Date / Time tramadol Allergy ADR-Swelling Verified 06/23/23 20:12 of the Eye PFSH Acute PFSH: Medical History 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 Lumbar stenosis with neurogenic claudication Spondylolisthesis of lumbar region Surgical History History of tubal ligation (05/01/88) Family History Family/Other Diabetes Sister Thyroid disease Social History Smoking and tobacco status: current every day smoker Alcohol intake: never Substance/Drug Use: current Substance/Drug use frequency: few times a month Household members: friend(s) Housing: House Marital status: / Current occupational status: unemployed Vitals/I&O/Wt Last Vital Signs Pulse 85 06/23/23 23:16 Resp 18 06/23/23 23:16 BP 131/85 06/23/23 23:16 Pulse Ox 98 06/23/23 23:16 O2 Del Method Room Air 06/23/23 22:53 Weight last 48 hrs Weight 60.328 kg Physical Exam Const: COMMON NORMALS: no acute distress and patient oriented x3 Eye: COMMON NORMALS: Equal, round and reactive pupils present and EOMs intact bilaterally Resp: COMMON NORMALS: normal respiratory effort, No retractions, No use of accessory muscles and clear to auscultation bilaterally AUSCULTATION: clear to auscultation bilaterally Cardio: COMMON NORMALS: no JVD, regular rate, regular rhythm, S1 normal heart sound present and S2 normal heart sound present RATE: regular rate RHYTHM: regular rhythm HEART SOUNDS: S1 normal heart sound present and S2 normal heart sound present GI: COMMON NORMALS: Normal to inspection, nondistended, normoactive bowel sounds present, Soft to palpation and non-tender Extremity: COMMON NORMALS: no pedal edema Neuro: COMMON NORMALS: patient oriented x3, CN's II-XII intact bilaterally, moves all extremities and no focal motor deficits Psych: COMMON NORMALS: mental status grossly normal Skin: NARRATIVE SKIN EXAM: right foot diabetic ulcer circular, [id number] left foot ulcer, 1st digitis, 1x1cm Data 06/23/23 20:27 06/23/23 20:27 Micro: Microbiology 06/23/23 22:38 Blood Culture - Preliminary Blood SPECIMEN COLLECTED 06/23/23 22:38 Blood Culture - Preliminary Blood SPECIMEN COLLECTED A&P Assessment and plan (1) Foot ulcer, left: (2) Right foot ulcer: (3) Cellulitis: (4) Type 2 diabetes mellitus: Plan right foot diabetic ulcer 1. ? A 1 cm x 0.9 cm x 1 cm subcutaneous soft tissue wound along the plantar side of the right foot, located below the distal end of the right 2nd metatarsal bone. Inflammation and soft tissue swelling is seen surrounding the wound involving the soft tissues measuring approximately 3 cm in diameter. No drainable fluid collection. 2. ? No acute fracture and no radiographic evidence of osteomyelitis. Left foot diabetic culcer CT/CT foot LT wo con* [id number] IMPRESSION: Focal ulcer crater noted in the plantar aspect of the 1st toe. No radiopaque foreign body or additional soft tissue gas. No bony destructive change. Plan: -coutinue vancomycin and zosyn -wound care -blood culture -podiatry consult by er for debridment in am -type 2 diabetes mellitus, a1c, LDSS -full code -lovenox for dvt prophylaxis Attestations Medical Necessity Statement*: patient requires hospitalization for diabetic ulcer, inpatient, greater than 2 midnights Diagnoses Foot ulcer, left L97.529 Right foot ulcer L97.519 Cellulitis L03.90 Type 2 diabetes mellitus E11.9
[2023-06-23 23:48] LABS: Lactic Acid level (Lactate) 3.3 mmol/L (0.5-2.2)
[2023-06-24 00:39] LABS: Estmated Average Glucose 263; Hemoglobin A1C 10.8 % (4.0-6.0)
[2023-06-24] MEDS: piperacillin-tazobactam 3.375 GM in sodium chloride 0.9% (plus) 50 ML IV (00:51)
[2023-06-24] MEDS: pantoprazole 40 mg SDV IVP (00:51)
[2023-06-24] MEDS: enoxaparin 40 mg/0.4 mL Syringe SUBCUT (00:51)
[2023-06-24] MEDS: sodium chloride 0.9% 1,000 ML 75 ML IV (00:52)
[2023-06-24] MEDS: acetaminophen 325 mg Tablet 650 MG PO (01:03)
--- NOTE | 2023-06-24 01:05 | PC.NURSE ---
Patient states she slid in the mud earlier today and that she caught herself the wrong way and ever since she has had sciatic pain in her lower back and buttock. She said she doesn't take anything at home for pain. PRN Tylenol given. Dr. Cobb notified.
[2023-06-24 04:59] VITALS: BP 133/67; PULSE 52; RESP 16; TEMP 36.8; O2SAT 95
[2023-06-24 06:00] VITALS: PULSE 53
[2023-06-24 06:11] LABS: Basophils # 0.1 10^3/uL (0.0-0.1); Basophils % 0.7 %; Eosinophils # 0.3 10^3/uL (0.0-0.8); Eosinophils % 3.1 %; Hematocrit 42.5 % (36-47); Lymphocytes % 46.5 %; Mean Corpuscular HGB Conc 32.7 g/dL (30-55); Mean Corpuscular Hemoglobin 29.4 pg (27-33); Mean Platelet Volume 10.9 fL (7.4-10.4); Monocytes # 0.6 10^3/uL (0.2-0.9); Monocytes % 6.8 %; Neutrophils % 42.8 %; Nucleated Red Blood Cells % 0 %; Platelet Count 262 10^3/cmm (157-399); Red Blood Count 4.72 10^6/uL (3.85-5.65); Red Cell Distribution Width 12.3 % (12.1-15.1); White Blood Count 8.66 10^3/uL (3.29-11.43)
[2023-06-24 06:31] LABS: Blood Urea Nitrogen 11 mg/dL (6-20); Calcium 8.4 mg/dL (8.5-10.5); Carbon Dioxide 27 mmol/L (22-29); Chloride 102 mmol/L (98-107); Glomerular Filtration Rate 86.2 mL/min (90-130); Glucose 252 mg/dL (65-115); Osmolality Calculated 294 mOsm/kg (285-295); Sodium 138 mmol/L (136-145)
[2023-06-24 06:58] LABS: Glucose Point of Care 252 mg/dL (70-110)
--- NOTE | 2023-06-24 07:28 | P.CONIM_ITS ---
Providers/Reason For Consult Consulting Physician/Specialty*: Dr. Tom Epps, D.P.M./podiatry Reason for Consult*: Bilateral foot wounds Attending Physician: Everette Cobb MD Primary Care Provider: Melvin Xiong DO History of Present Illness History of Present Illness Aida Luong is a 57 year old female with history of type 2 diabetes, uncontrolled, current smoker who presented to the emergency department yesterday evening (06/23/23). Patient states that she has had wounds on both feet since about mid March of this year. She states that they have continued to get bigger. She has been dressing them home with triple antibiotic ointment and Medihoney. She has since ran out of dressing supplies and has stopped dressing them. She states that from that point they have become increasingly more stinky. She states that yesterday during the dressing change, a chunk of black stuff came out and it smelled really bad . This prompted her to come to the emergency department for further work-up and evaluation. Patient denies any constitutional symptoms. Denies any pain. Denies any other pedal complaints at this time. She is not currently established with a primary care provider. No one is managing her diabetes at this point. She has never seen a podiatric ph ysician up to this point. Review of Systems General: Reports: 10 or more systems reviewed and unremarkable except in HPI and below Const: Denies: fever(s), chills, body aches or change in appetite Eyes: Denies: change in vision or blurry vision Card: Denies: chest pain, palpitations or irregular heart rhythm Resp: Denies: dyspnea GI: Denies: abdominal pain, nausea, vomiting or diarrhea Musc: Reports: joint stiffness Skin/Breast: Reports: non-healing lesions and lesions Neuro: Reports: numbness in extremities Medications/Allergies Home Medications Medication Instructions Recorded Confirmed Last Taken Type No Known Home Medications 06/23/23 06/23/23 Unknown History Allergies Allergy/AdvReac Type Severity Reaction Status Date / Time tramadol Allergy ADR-Swelling Verified 06/23/23 20:12 of the Eye Current Medications Generic Name Dose Route Start Last Admin Trade Name Freq PRN Reason Stop Dose Admin Acetaminophen 650 mg 06/23/23 23:38 06/24/23 01:03 Acetaminophen 325 Mg Tablet PO 650 mg Q6H PRN Administration Mild/Mod Pain Or Temp >/= 101 Enoxaparin Sodium 40 mg 06/23/23 23:38 06/24/23 00:51 Enoxaparin 40 Mg/0.4 Ml Syringe SUBCUT 40 mg Q24H SCAR Administration Piperacillin Sod/Tazobactam 50 mls @ 12.5 mls/hr 06/24/23 00:00 06/24/23 04:43 Sod 3.375 gm/ Sodium Chloride IV Infused Q8H SCAR Infusion Protocol Sodium Chloride 1,000 mls @ 75 mls/hr 06/23/23 23:38 06/24/23 00:52 Sodium Chloride 0.9% IV 75 mls/hr .[id number] SCAR Administration Pantoprazole Sodium 40 mg 06/23/23 23:38 06/24/23 00:51 Pantoprazole 40 Mg Sdv IVP 40 mg Q24H SCAR Administration PFSH Acute PFSH: Medical History 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 Lumbar stenosis with neurogenic claudication Spondylolisthesis of lumbar region Surgical History History of tubal ligation (05/01/88) Family History Family/Other Diabetes Sister Thyroid disease Social History Smoking and tobacco status: current every day smoker Alcohol intake: never Substance/Drug Use: current Substance/Drug use frequency: few times a month Household members: friend(s) Housing: House Marital status: / Current occupational status: unemployed Vitals/I&O/Wt Last Vital Signs Temp 98.3 F 06/24/23 04:59 Pulse 53 L 06/24/23 06:00 Resp 16 06/24/23 04:59 BP 133/67 06/24/23 04:59 Pulse Ox 95 06/24/23 04:59 O2 Del Method Room Air 06/24/23 04:59 FiO2 21 06/23/23 23:46 06/23/23 06/24/23 06/24/23 22:59 06:59 14:59 Intake Total 300 / 300 Output Total 100 / 100 Balance 200 / 200 Weight last 48 hrs Weight 133 lb Physical Exam Narrative: BELOW IS A FOCUSED LOWER EXTREMITY EXAM GENERAL: A&O x 3 VASCULAR: DP/PT pulses palpable 2/4 with CFT intact, <3seconds to distal digits DERMATOLOGICAL: Full-thickness ulceration plantar aspect right second metatarsal as well as left hallux at the level of the H IPJ. No proximal streaking of erythema. Minimal surrounding erythema. Mild surrounding edema. No underlying fluctuance or signs of deep space infection. Wound #1 Location: Plantar second metatarsal head right foot Size: 1.0 x 0.8 x 1.9 cm Undermining: Negative Tracking: Negative Probe to bone: Negative Borders: Hyperkeratotic Base: 100% fibrotic Drainage: Mild serous Malodor: Positive Wound #2 Location: Left hallux interphalangeal joint plantarly Size: 0.6 x 0.4 x 0.1 cm Undermining: Negative Tracking: Negative Probe to bone: Negative Borders: Hyperkeratotic Base: Dry heme/eschar Drainage: Negative Malodor: Negative MUSCULOSKELETAL: Cavus foot type with prominent metatarsal heads and MTPJ extensor contracture with PIPJ flexion contracture. 5/5 muscle strength in all 4 quadrants of the lower extremity when tested against resistance NEUROLOGICAL: Neurological sensation to the affected foot and ankle is present through L4-S1 dermatomes with no hyper/hypoesthesias, negative Tinel or Valleix's sign Data 06/24/23 05:45 06/24/23 05:45 Micro: Microbiology 06/23/23 22:38 Blood Culture - Preliminary Blood SPECIMEN COLLECTED 06/23/23 22:38 Blood Culture - Preliminary Blood SPECIMEN COLLECTED A&P Assessment and plan (1) Type 2 diabetes mellitus: (2) Foot ulcer, left: (3) Right foot ulcer: (4) Ulcer of right foot with fat layer exposed: Plan LABS AND CLINICAL INFO: WBC 10.5 ESR 33 CRP 30 VSS Cultures: Pending Toxicology: Positive amphetamine, positive marijuana Imaging: Three-view x-rays bilateral feet taken in the emergency department show no cortical erosions. Soft tissue defect consistent with full-thickness ulcerations. Radiolucency is due to the soft tissue defect. No subcutaneous emphysema noted. This was confirmed with CT scan. PLAN: -Okay for diet from podiatry standpoint -No surgical intervention during this admission -Patient underwent excisional wound debridement at bedside this morning without complication. See general procedure note for details -Local wound care consisting of iodoform packing, Betadine 4 x 4 gauze, dry 4 x 4 gauze, Kerlix, Yanick bandage. To be changed daily -Continue antibiotics -Wound cultures obtained at bedside this morning. These will be sent to [facility] for ID and sensitivity. We will be able to adjust antibiotics accordingly in the outpatient setting based on RICARDA results -Physical therapy order placed for cam boot to right lower extremity to help offload ulceration -Discharge plan: Okay to discharge home from podiatry standpoint. Patient will need to be sent home with wound care supplies consisting of iodoform packing ga uze, 4 x 4 gauze, iodine, Kerlix, Yanick bandage. Patient will change dressings daily at home. Based on clinical findings I do not believe that the patient needs PICC line placed at this time. She can be managed outpatient on oral antibiotics, broad-spectrum. Patient also needs establishment with a primary care provider to help regulate blood sugars. Recommend the patient follow-up within 1 week of discharge with wound care for bilateral foot wounds. Coding Level of Care Code Acute Code for [facility] Fwd Diagnoses Type 2 diabetes mellitus E11.9 Foot ulcer, left L97.529 Right foot ulcer L97.519 Ulcer of right foot with fat layer exposed L97.512
[2023-06-24 07:36] VITALS: BP 108/78; PULSE 71; RESP 17; TEMP 36.4; O2SAT 91
--- NOTE | 2023-06-24 07:41 | PM.ACPR ---
Procedure/Consent Procedure Narrative: PROCEDURE: Excisional debridement right foot wound Location: Right 2nd metatarsal head plantarly Local Anesthesia: None Consent: Right foot excisional wound debridment Details: A dermal curette was used to remove the hyperkeratotic rim of the plantar right foot wound. Excisional wound agreement was carried down to the level of subcutaneous tissue with dermal curette. Hemostasis was achieved before the site was dressed with iodoform packing gauze, Betadine soaked 4 x 4 gauze, dry 4 x 4 gauze, Kerlix, Yanick bandage Predebridement measurements: 1.0 x 0.8 x 1.9 cm Postdebridement measurements: 1.2 x 1.0 x 2.0 cm Hemostasis: Manual compression Irrigation: Sterile saline Dressing: iodoform packing gauze, Betadine soaked 4 x 4 gauze, dry 4 x 4 gauze, Kerlix, Yanick bandage Estimated Blood Loss: 2 cc Offloading: Cam boot ordered Wound culture both aerobic and anaerobic taken.
--- NOTE | 2023-06-24 08:55 | PM.DCS ---
Discharge Providers Date of Admission: 06/23/23 23:06 Date of Discharge: June 24, 2023 Attending Provider at Admission: Everette Cobb MD Attending Provider at Discharge: Everette Cobb MD Primary Care Provider: Melvin Xiong DO Diagnoses at Discharge Discharge Diagnosis (1) Type 2 diabetes mellitus: Status: Acute (2) Foot ulcer, left: Status: Acute (3) Right foot ulcer: Status: Acute (4) Ulcer of right foot with fat layer exposed: Status: Acute Reason for Visit Reason for Visit: Hole in Both Feet\[facility] Course Hospital Course 57-year-old female who has history of diabetes noncompliance does not take anything for diabetes at home, presented with chief complaint of worsening of her ulcers on her feet bilaterally. Patient states that she has had wounds on both feet since about mid March of this year.? She states that they have continued to get bigger.? She has been dressing them home with triple antibiotic ointment and Medihoney.? She has since ran out of dressing supplies and has stopped dressing them.? She states that from that point they have become increasingly more stinky.? She states that yesterday during the dressing change, a chunk of black stuff came out and it smelled really bad .? This prompted her to come to the emergency department for further work-up and evaluation.? Patient denies any constitutional symptoms.? Denies any pain.? Denies any other pedal complaints at this time.? She is not currently established with a primary care provider.? No one is managing her diabetes at this point.? She has never seen a podiatric physician up to this point. Dr. Epps was consulted, he recommended outpatient therapy,?Patient will need to be sent home with wound care supplies consisting of iodoform packing gauze, 4 x 4 gauze, iodine, Kerlix, Yanick bandage.? Patient will change dressings daily at home We will discharge patient on doxycycline and Augmentin, insulin, metformin Close podiatry follow-up PICC line or IV antibiotics not recommended by podiatry at this point patient is afebrile no sign of sepsis, no leukocytosis. Her hemoglobin A1c is 10 Physical Exam Narrative: GENERAL: A&O x 3 VASCULAR: DP/PT pulses palpable 2/4 with CFT intact, <3seconds to distal digits DERMATOLOGICAL: Full-thickness ulceration plantar aspect right second metatarsal as well as left hallux at the level of the H IPJ.? No proximal streaking of erythema.? Minimal surrounding erythema.? Mild surrounding edema.? No underlying fluctuance or signs of deep space infection. Wound #1 Location: Plantar second metatarsal head right foot Size: 1.0 x 0.8 x 1.9 cm Undermining: Negative Tracking: Negative Probe to bone: Negative Borders: Hyperkeratotic Base: 100% fibrotic Drainage: Mild serous Malodor: Positive Wound #2 Location: Left hallux interphalangeal joint plantarly Size: 0.6 x 0.4 x 0.1 cm Undermining: Negative Tracking: Negative Probe to bone: Negative Borders: Hyperkeratotic Base: Dry heme/eschar Drainage: Negative Malodor: Negative MUSCULOSKELETAL: Cavus foot type with prominent metatarsal heads and MTPJ extensor contracture with PIPJ flexion contracture.? 5/5 muscle strength in all 4 quadrants of the lower extremity when tested against resistance NEUROLOGICAL: Neurological sensation to the affected foot and ankle is present through L4-S1 dermatomes with no hyper/hypoesthesias, negative Tinel or Valleix's sign Discharge Data Studies Completed and Pending Completed Studies During Hospitalization Category Date Time Status CT foot LT wo con* [id number] Stat Cat Scan 06/23/23 21:[address] foot RT wo con* [id number] Stat Cat Scan 06/23/23 21:52 Completed XR foot RT min 3V* [id number] Stat Exams 06/23/23 20:19 Completed XR toe LT min 2V [id number] Stat Exams 06/23/23 20:19 Completed Pending at discharge Category Date Time Status Anaerobic Culture Routine Lab 06/24/23 07:15 Received Blood Culture Stat Lab 06/23/23 22:38 Results Wound Culture and Gram Stain Routine Lab 06/24/23 07:15 Received Radiology Impressions Foot X-Ray 06/23/23 20:19 IMPRESSION: No bony destructive change is evident. Abnormal soft tissue gas is situated along the plantar aspect of the 2nd metatarsophalangeal joint. No radiopaque foreign body. Toe X-Ray 06/23/23 20:19 IMPRESSION: 1. No bony destructive change. 2. Soft tissue gas noted in the plantar aspect of the 1st toe without radiopaque foreign body. Foot CT 06/23/23 21:52 IMPRESSION: 1. A 1 cm x 0.9 cm x 1 cm subcutaneous soft tissue wound along the plantar side of the right foot, located below the distal end of the right 2nd metatarsal bone. Inflammation and soft tissue swelling is seen surrounding the wound involving the soft tissues measuring approximately 3 cm in diameter. No drainable fluid collection. 2. No acute fracture and no radiographic evidence of osteomyelitis. Laboratory Results WBC 8.66 10^3/uL (3.29-11.43) 06/24/23 05:45 RBC 4.72 10^6/uL (3.85-5.65) 06/24/23 05:45 Hgb 13.90 g/dL (11.27-16.99) 06/24/23 05:45 Hct 42.5 % (36-47) 06/24/23 05:45 MCV 90.0 fl (85-98) 06/24/23 05:45 MCH 29.4 pg (27-33) 06/24/23 05:45 MCHC 32.7 g/dL (30-55) 06/24/23 05:45 RDW 12.3 % (12.1-15.1) 06/24/23 05:45 Plt Count 262 10^3/cmm (157-399) 06/24/23 05:45 MPV 10.9 fL (7.4-10.4) H 06/24/23 05:45 Neut % (Auto) 42.8 % 06/24/23 05:45 Lymph % (Auto) 46.5 % 06/24/23 05:45 Mills % (Auto) 6.8 % 06/24/23 05:45 Eos % (Auto) 3.1 % 06/24/23 05:45 Baso % (Auto) 0.7 % 06/24/23 05:45 Neut # (Auto) 3.70 10^3/uL (1.8-7.7) 06/24/23 05:45 Lymph # (Auto) 4.0 10^3/uL (0.8-4.8) 06/24/23 05:45 Mills # (Auto) 0.6 10^3/uL (0.2-0.9) 06/24/23 05:45 Eos # (Auto) 0.3 10^3/uL (0.0-0.8) 06/24/23 05:45 Baso # (Auto) 0.1 10^3/uL (0.0-0.1) 06/24/23 05:45 Nucleated RBC % (auto) 0 % 06/24/23 05:45 Nucleated RBCs # 0.0 /100WBC 06/24/23 05:45 ESR 33 mm/hr (0-15) H 06/23/23 20:27 Sodium 138 mmol/L (136-145) 06/24/23 05:45 Potassium 3.0 mmol/L (3.5-5.1) L 06/24/23 05:45 Chloride 102 mmol/L (98-107) 06/24/23 05:45 Carbon Dioxide 27 mmol/L (22-29) 06/24/23 05:45 Anion Gap 12.0 (5-19) 06/24/23 05:45 BUN 11 mg/dL (6-20) 06/24/23 05:45 Creatinine 0.7 mg/dL (0.5-0.9) 06/24/23 05:45 GFR Calculation 86.2 mL/min (90-130) L 06/24/23 05:45 Glucose 252 mg/dL (65-115) H 06/24/23 05:45 POC Glucose 252 mg/dL (70-110) H 06/24/23 06:51 Estimat Average Glucose 263 06/23/23 20:27 Hemoglobin A1c 10.8 % (4.0-6.0) H 06/23/23 20:27 Calculated Osmolality 294 mOsm/kg (285-295) 06/24/23 05:45 Lactic Acid 2.2 mmol/L (0.5-2.2) 06/23/23 20:27 Lactic Acid (Sepsis) 3.3 mmol/L (0.5-2.2) H 06/23/23 23:21 Calcium 8.4 mg/dL (8.5-10.5) L 06/24/23 05:45 Total Bilirubin 0.3 mg/dL (0.15-1.2) 06/23/23 20:27 AST 12 U/L (0-32) 06/23/23 20:27 ALT 7 U/L (0-33) 06/23/23 20:27 Alkaline Phosphatase 131 U/L (35-105) H 06/23/23 20: C-Reactive Protein 30.1 mg/L (0.0-4.9) H 06/23/23 20: Total Protein 7.9 g/dL (6.6-8.7) 06/23/23 20: Albumin 3.9 g/dL (3.5-5.2) 06/23/23: Globulin 4.0 g/dL (1.3-4.6) 06/23/23: Procalcitonin 0.03 ng/mL (0-0.5) 06/23/23: TSH 1.60 uIU/mL (0.27-4.20) 06/23/23: Urine Color Yellow (Yellow) 06/23/23 22:06 Urine Appearance Sl hazy (CLEAR) A 06/23/23 22:06 Urine pH 5 (5-7) 06/23/23 22:06 Ur Specific [place] 1.030 (1.005-1.030) 06/23/23 22:06 Urine Protein Neg (Negative) 06/23/23 22:06 Urine Glucose (UA) 4+ (Normal) H 06/23/23 22:06 Urine Ketones 1+ (Negative) H 06/23/23 22:06 Urine Blood Neg (Negative) 06/23/23 22:06 Urine Nitrate Negative (Negative) 06/23/23 22:06 Urine Bilirubin 1+ (Negative) H 06/23/23 22:06 Urine Urobilinogen 1 mg/dL (Negative) H 06/23/23 22:06 Ur Leukocyte Esterase 1+ (Negative) H 06/23/23 22:06 Urine RBC 0-4 /hpf (0-2) H 06/23/23 22:06 Urine WBC 15-25 /hpf (0-5) H 06/23/23 22:06 Ur Squamous Epith Cells 15-25 /hpf (0-5) H 06/23/23 22:06 Amorphous Sediment Not Reportable 06/23/23 22:06 Urine Bacteria Trace /hpf (NONE) 06/23/23 22:06 Urine Mucus 2+ /hpf 06/23/23 22:06 Urine Opiates Screen Negative ng/mL (Negative) 06/23/23 22:06 Ur Barbiturates Screen Negative ng/mL (Negative) 06/23/23 22:06 Ur Phencyclidine Scrn Negative ng/mL (Negative) 06/23/23 22:06 Ur Amphetamines Screen Positive ng/mL (Negative) H 06/23/23 22:06 U Benzodiazepines Scrn Negative ng/mL (Negative) 06/23/23 22:06 Urine Cocaine Screen Negative ng/mL (Negative) 06/23/23 22:06 U Marijuana (THC) Screen Positive ng/mL (Negative) H 06/23/23 22:06 Ethyl Alcohol < 10 mg/dL (0-10) 06/23/23 20:27 Vitals Last Vital Signs Temp 97.6 F 06/24/23 07:36 Pulse 71 06/24/23 07:36 Resp 17 06/24/23 07:36 BP 108/78 06/24/23 07:36 Pulse Ox 91 06/24/23 07:36 O2 Del Method Room Air 06/24/23 04:59 FiO2 21 06/23/23 23:46 Discharge Plan Discharge Patient Disposition: Home Condition: Stable Prescriptions: New (DME) lancets [Lancets, Super Thin] Misc See Rx Instructions .Route Qty: 100 3RF Rx Instructions: As directed (DME) blood-glucose meter [Accu-Chek Guide Glucose Meter] Misc See Rx Instructions .Route Qty: 1 0RF Rx Instructions: As directed (DME) Accu-Chek Karo Plus test strp Strip See Rx Instructions .Route Qty: 100 2RF Rx Instructions: As directed amoxicillin-pot clavulanate 875-125 mg tablet 1 tab PO BID Qty: 28 0RF insulin glargine [Lantus Solostar U-100 Insulin] 100 unit/mL (3 mL) insulin pen 10 unit SUBCUT DAILY Qty: 15 6RF metformin 500 mg tablet 500 mg PO BID Qty: 90 2RF doxycycline hyclate 100 mg tablet 100 mg PO BID 14 Days Qty: 28 0RF No Action No Known Home Medications Discharge Orders: Discharge Order (Routine); Ordered 06/24/23 Ordered By: Parker Ac Referrals: Tom Epps DPM [Physician] - 4-7 days Melvin Xiong DO [Primary Care Provider] - 7-10 days Patient Instructions: Opioid Safety Activity Restrictions/Additional Instructions: Patient will need to be sent home with wound care supplies consisting of iodoform packing gauze, 4 x 4 gauze, iodine, Kerlix, Yanick bandage.? Patient will change dressings daily at home Discharge Attestations Time Spent in Discharge Care*: greater than 30 min Quality Metrics Clinical Quality Measures [ No reported AMI, CVA or VTE this stay] Coding Level of Care Code Acute Code for [facility] Fwd Diagnoses Type 2 diabetes mellitus E11.9 Foot ulcer, left L97.529 Right foot ulcer L97.519 Ulcer of right foot with fat layer exposed L97.512
[2023-06-24] MEDS: insulin lispro 100 unit/1 mL SUBCUT ×2 (09:42→12:10)
[2023-06-24 10:32] VITALS: BP 108/78; PULSE 71; RESP 17; TEMP 36.4; O2SAT 91
--- NOTE | 2023-06-24 10:40 | PC.CHAP ---
Pastoral Care Encounter/Spiritual Assessment Type of Contact [] Declined senior safety management consultant visit [] Patient/Family/Request visit [] Outpatient visit [] Follow-up visit [] Physician referral [] Code/Alert [x] Routine visit [] Staff referral [] Actively dying [] Patient sleeping [] Family support [] [] Out of room [] Palliative care [] [x] Receiving care in room [] Pre-surgical visit [] Trauma [] Long length of stay [] ICU visit [] Other: Relational/Emotional Strength [x] Patient feels connected with others/family/visitors/staff [] Distress [] Loneliness/isolation [] Abandonment Spirituality of Patient [x] Person of Tatiana [] Attends Sabianist of their Tatiana [x] Believes in Prayer [] Reads Bible or Uatsdin materials [] There are Spiritual issues to be addressed Leak Gang Supervisor Interventions [x] Prayer [x] Active listening [x] Non-anxious presence [x] Spiritual/emotional support [] Crisis/trauma care [x] Spiritual counseling [] Bereavement support [] Provided bereavement packet [] Provided Bible/devotional materials [] Provided toy/stuffed animal, coloring book to patient or family member [] Provided Communion [] Anointing/[place] [] Salvation [x] Completed spiritual assessment [] Other: Impact on Illness or Injury [] Angry [] Fearful [] Anxious [] Often cries [] Exhaustion [] Unable to work [] Unable to attend anabaptist [] Unable to walk/stand [] Unable to read [] Unable to drive [] Unable to eat/drink [] Unable to sleep [] Unable to be with family [] Patient intubated [] Other: Summary proceeduer kalyn martin feels good well be going home Time spent with patient 10 mins
[2023-06-24 10:58] LABS: Glucose Point of Care 162 mg/dL (70-110)
[2023-06-24 12:00] VITALS: BP 101/62; PULSE 54; RESP 18; TEMP 36.8; O2SAT 93
[2023-06-24] MEDS: vancomycin 1,000 MG in sodium chloride 0.9% 250 ML 250 MG IV (12:12)
== END 2023-06-24 13:30 | disposition home or self-care (01) | DRG 623 ==
LOC: ER 22:06 → MEDSURG 23:06
PROVIDERS: Admitting Provider Family Medicine; Emergency Provider Physician Assistant; PCP Dermatology Procedural Dermatology; Visit Provider Family Medicine
DX: E11.621 Type 2 diabetes mellitus with foot ulcer (principal); L97.412 Non-pressure chronic ulcer of right heel and midfoot with fat layer exposed; L97.421 Non-pressure chronic ulcer of left heel and midfoot limited to breakdown of skin; E11.65 Type 2 diabetes mellitus with hyperglycemia; E11.42 Type 2 diabetes mellitus with diabetic polyneuropathy; Z91.148 Patient's other noncompliance with medication regimen for other reason; F17.200 Nicotine dependence, unspecified, uncomplicated; M51.17 Intervertebral disc disorders with radiculopathy, lumbosacral region; M48.062 Spinal stenosis, lumbar region with neurogenic claudication; M43.16 Spondylolisthesis, lumbar region
CPT/HCPCS: 36415; 36416; 73630; 73660; 73700; 80048; 80053; 80306; 80307; 81001; 82962; 83036; 83605; 84145; 84443; 85025; 85651; 86140; 87040; 87070; 87075; 87077; 87186; 87205; 94664; 96372; 96374; 97760; 99285; C9113; J1650; J1815; J1885; J2270; J2543; J3370; J7030; J7050; L4361

== ENCOUNTER 2023-09-24 09:55 | Outpatient (CLI) | payer MEDICAID, SELFPAY ==
--- NOTE | 2023-09-24 11:45 | MR_ITS ---
WS: [id number] MRI LUMBAR SPINE NONCONTRAST TECHNIQUE: Sagittal T1, T2 and STIR imaging. Axial T1 and T2 imaging. CLINICAL INFORMATION: neurogenic claudication, lumbar stenosis COMPARISON: MRI 2020 FINDINGS: Mild lumbar curve. Progressed grade 1 anterolisthesis L4 on L5. Progressive disc space narrowing at L 4-5. No acute compression fractures. L1-L2: Normal. L2-L3: Mild annular bulging. Mild facet arthropathy. Small LEFT foraminal protrusion with mild LEFT f oraminal narrowing. L3-L4: Mild annular bulging. Slight impingement on the traversing LEFT L4 nerve root in the subarticu lar recess. Small LEFT foraminal protrusion with moderate LEFT foraminal narrowing. Impingement on th e exiting LEFT L3 nerve root. This is progressed compared to previous. Mild facet arthropathy. L4-L5: Moderate central canal stenosis due to disc bulging with facet arthropathy and ligamentum flav um hypertrophy. Impingement traversing L5 nerve roots. This is progressed compared to previous. Moder ate to advanced facet arthropathy. Mild to moderate bilateral foraminal narrowing L5-S1: Mild annular bulging. Mild facet arthropathy. Mild LEFT foraminal narrowing. Visualized pelvic bony structures: Normal. Paravertebral soft tissues: Normal. IMPRESSION: 1. Mild lumbar curve. No acute compression.Grade 1 anterolisthesis L4 on L5 has progressed. 2. Moderate central canal stenosis L4-5 due to disc bulging with facet arthropathy and ligamentum fl avum hypertrophy. Impingement traversing L5 nerve roots bilaterally. This is progressed compared to 2 020. 3. Mild to moderate bilateral L4-5 foraminal narrowing . 4. Annular bulging L3-4 with impingement LEFT subarticular recess. LEFT foraminal protrusion at this level progressed compared to previous with impingement on the exiting LEFT L3 nerve root with modera te LEFT foraminal narrowing. Recommend correlation LEFT L3 nerve root symptoms. 5. Moderate to advanced arthropathy L4-5 and moderate facet arthropathy L5-S1.
--- NOTE | 2023-09-24 14:00 | CT_ITS ---
WS: [id number] LDCT LUNG CANCER SCREENING HISTORY: smoking CA screening TECHNIQUE: Axial imaging performed from the apices to 1 cm below the costophrenic angles. Coronal and sagittal reformats are submitted with axial MIP series. All CT scans at [facility] use at least one of these dose optimization techniques: automated exposure control; mA and/or kV adjustment per patient size (includes targeted exams where dose is matched to clinical indication); or iterativ e reconstruction. DLP: 49.58 mGy.cm DIvol: Mean CTDIvol: 0.80 (mGy) COMPARISON: None available. Diagnostic quality: Satisfactory Lungs: No pulmonary mass or nodule. There is a benign granuloma subpleural RIGHT lower lobe. No endob ronchial lesion. Heart: Normal size heart with no pericardial effusion.. Other findings: No adenopathy. Normal size pulmonary artery. No adrenal mass. Increase in thoracic ky phosis. IMPRESSION: CT/CT lung screening [id number] LUNG-RADS: 1-Negative FOLLOW UP: 12 Month: Continue annual screening with LDCT OTHER FINDINGS (S MODIFIER): None.
== END 2023-09-24 09:56 | disposition home or self-care (01) ==
LOC: RAD 09:57
PROVIDERS: PCP Family Medicine; Visit Provider Family Medicine
DX: Z12.2 Encounter for screening for malignant neoplasm of respiratory organs (principal); F17.219 Nicotine dependence, cigarettes, with unspecified nicotine-induced disorders; M48.062 Spinal stenosis, lumbar region with neurogenic claudication; M51.36 Other intervertebral disc degeneration, lumbar region; M47.817 Spondylosis without myelopathy or radiculopathy, lumbosacral region
CPT/HCPCS: 71271; 72148

== ENCOUNTER 2023-09-24 09:56 | Outpatient (CLI) | payer MEDICAID, SELFPAY ==
--- NOTE | 2023-09-24 10:07 | MM_ITS ---
WS: [id number] BILATERAL SCREENING DIGITAL TOMOSYNTHESIS MAMMOGRAM WITH CAD HISTORY: breast CA screening COMPARISON: None available. Bilateral CC and MLO views with tomosynthesis and synthetic mammography submitted. Computer aided det ection analyzed. Breast composition: There are scattered areas of fibroglandular density. No suspicious masses, microc alcifications or architectural distortion. IMPRESSION: MM/[place] [id number] BI-RADS: 1-Negative FOLLOW UP: 1 Year Follow-up
== END 2023-09-24 09:57 | disposition home or self-care (01) ==
LOC: RAD 09:57
PROVIDERS: PCP Family Medicine; Visit Provider Family Medicine
DX: Z12.31 Encounter for screening mammogram for malignant neoplasm of breast
CPT/HCPCS: 77063; 77067

== ENCOUNTER 2025-03-28 09:58 | Emergency (ER) | payer MEDICAID, SELFPAY ==
[2025-03-28 10:05] VITALS: BP 119/67; PULSE 71; TEMP 36.6; O2SAT 96
--- NOTE | 2025-03-28 10:39 | XRR_ITS ---
PROCEDURE INFORMATION: Exam: XR Left Hip Exam date and time: 03/28/2025 10:48 AM Age: 59 years old Clinical indication: Injury or trauma; Blunt trauma (contusions or hematomas); Left; Fall with pain in the hip. Fall occured several days ago. ; Additional info: Fall, left hip/thigh pain TECHNIQUE: Imaging protocol: Radiologic exam of the left hip. Views: 2 or 3 views hip with pelvis when performed. COMPARISON: CR XR hip LT 2-3V wo/w pel* [id number] 08/23/2021 1:51 PM FINDINGS: Bones/joints: Unremarkable. No acute fracture. Soft tissues: No acute soft tissue abnormalities are noted. Intraperitoneal space: Coarse calcifications noted within the pelvis unchanged. XR/XR hip LT 2-3V wo/w pel* [id number] IMPRESSION: 1. No acute fracture identified.
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
== END 2025-03-28 11:54 | disposition home or self-care (01) ==
PROVIDERS: Emergency Provider Student in an Organized Health Care Education/Training Program
DX: M54.32 Sciatica, left side (principal); Z79.84 Long term (current) use of oral hypoglycemic drugs; F17.210 Nicotine dependence, cigarettes, uncomplicated; E11.9 Type 2 diabetes mellitus without complications
CPT/HCPCS: 73502; 99283; J9999